=== PATIENT | female | born 1995 | race American Indian/Alaskan Native ===

== ENCOUNTER 2019-04-11 16:03 | Emergency (ER) | payer SELFPAY ==
--- NOTE | 2019-04-11 16:52 | Event Note ---
ED Screening Note ED Screening Note: 23 yo female with vomiting headache nausea This initial assessment/diagnostic orders/clinical plan/treatment(s) is/are subject to change based on patients health status, clinical progression and re- assessment by fellow clinical providers in the ED. Further treatment and workup at subsequent clinical providers discretion. Patient/guardian urged not to elope from the ED as their condition may be serious if not clinically assessed and managed. Initial orders include: upt ua
[2019-04-11 19:50] LABS: Basophils % (Auto) 0.6 % (0.0-1.8); Eosinophils # (Auto) 0.1 K/mm3 (0.0-0.4); Eosinophils % (Auto) 1.3 % (0.0-4.3); Hematocrit 35.2 % (30.3-42.9); Hemoglobin 11.8 gm/dl (10.1-14.3); Lymphocytes # (Auto) 2.2 K/mm3 (1.2-5.4); Mean Corpuscular HGB Conc 34 % (30-34); Mean Corpuscular Volume 83 fl (79-97); Monocytes # (Auto) 0.4 K/mm3 (0.0-0.8); Monocytes % (Auto) 6.7 % (0.0-7.3); Platelet Count 233 K/mm3 (140-440); Red Blood Count 4.26 M/mm3 (3.65-5.03); Red Cell Distribution Width 14.4 % (13.2-15.2)
[2019-04-11 20:05] LABS: BUN/Creatinine Ratio 12; Blood Urea Nitrogen 7 mg/dL (7-17); Calcium 9.1 mg/dL (8.4-10.2); Hemolysis Index 3
[2019-04-11 20:09] LABS: Alanine Aminotransferase < 5 units/L (7-56)
[2019-04-11 20:17] LABS: HCG Qualitative,Urine Negative (Negative)
[2019-04-11 20:19] LABS: Bacteria,Urine 1+ /HPF (Negative); Bilirubin,Urine NEG (Negative); Blood,Urine NEG (Negative); Color,Urine Yellow (Yellow); Mucus,Urine 3+ /HPF; Protein,Urine <15 mg/dL mg/dL (Negative); Urobilinogen,Urine < 2.0 mg/dL (<2.0)
[2019-04-11] MEDS ORDERED: FAMOTIDINE 20 MG/2 ML INJ IV ONE (20:35)
[2019-04-11] MEDS ORDERED: SODIUM CHLORIDE 0.9% 1000 ML 1,000 ML IV ONE (20:35)
[2019-04-11] MEDS ORDERED: metroNIDAZOLE 500 MG TAB PO ONE (21:31)
--- NOTE | 2019-04-11 21:38 | Emergency Department Report ---
ED N/V/D HPI - General Chief complaint: Nausea/Vomiting/Diarrhea Stated complaint: N/V Time Seen by Provider: 04/11/19 18:45 Source: patient Mode of arrival: Ambulatory Limitations: No Limitations - History of Present Illness Initial comments: 23-year-old -[place] female patient without significant past medical history presents with complaints of nausea x3 days and 3 episodes of vomiting times today. She also complains of a mild 2/10 in severity headache and lower abdominal cramping pain. She denies any dysuria or hematuria, but admits to urinary frequency and mild vaginal discharge with an odor. Patient also denies any fever/chills/sweats, diarrhea, hematochezia, melena, hematemesis/coffee- ground emesis, vision changes, dizziness, chest pain, shortness of breath, numbness/tingling/weakness in her limbs, or difficulty with ambulation. MD complaint: nausea, vomiting, abdominal pain -: Sudden - Related Data Previous Rx's Medication Instructions Recorded Last Taken Type Ondansetron [Zofran Odt] 4 mg PO Q8HR PRN #12 tab.rapdis 04/11/19 Unknown Rx Sulfamethoxazole/Trimethoprim 1 each PO BID 5 Days #10 tablet 04/11/19 Unknown Rx [Bactrim DS TAB] Allergies Allergy/AdvReac Type Severity Reaction Status Date / Time No Known Allergies Allergy Unverified 04/11/19 16:16 ED Review of Systems ROS: Stated complaint: N/V Other details as noted in HPI Constitutional: denies: chills, fever Eyes: denies: eye pain, vision change ENT: denies: hearing loss, epistaxis Respiratory: denies: cough, shortness of breath, wheezing Cardiovascular: denies: chest pain, palpitations Gastrointestinal: abdominal pain, nausea, vomiting. denies: diarrhea, constipation, hematemesis, melena Genitourinary: frequency, discharge. denies: dysuria, hematuria Musculoskeletal: denies: back pain, joint swelling, arthralgia Skin: denies: rash, lesions Neurological: denies: headache, weakness, paresthesias ED Past Medical Hx - Past Medical History Previous Medical History?: No - Surgical History Past Surgical History?: No - Social History Smoking Status: Former Smoker - Medications Home Medications: Home Medications Medication Instructions Recorded Confirmed Last Taken Type Ondansetron [Zofran Odt] 4 mg PO Q8HR PRN #12 tab.rapdis 04/11/19 Unknown Rx Sulfamethoxazole/Trimethoprim 1 each PO BID 5 Days #10 tablet 04/11/19 Unknown Rx [Bactrim DS TAB] ED Physical Exam - General Limitations: No Limitations General appearance: alert, in no apparent distress - Head Head exam: Present: atraumatic, normocephalic - Eye Eye exam: Present: normal appearance - ENT ENT exam: Present: mucous membranes moist - Neck Neck exam: Present: normal inspection - Respiratory Respiratory exam: Present: normal lung sounds bilaterally. Absent: respiratory distress - Cardiovascular Cardiovascular Exam: Present: regular rate, normal rhythm. Absent: systolic murmur, diastolic murmur, rubs, gallop - GI/Abdominal GI/Abdominal exam: Present: soft, tenderness (suprapubic ), normal bowel sounds. Absent: distended, guarding, rebound, rigid - External exam: Present: normal external exam Speculum exam: Present: vaginal discharge, cervical discharge. Absent: vaginal bleeding Bi-manual exam: Absent: cervical motion tendernes - Extremities Exam Extremities exam: Present: normal inspection - Back Exam Back exam: Present: normal inspection - Neurological Exam Neurological exam: Present: alert, oriented X3 - Psychiatric Psychiatric exam: Present: normal affect, normal mood - Skin Skin exam: Present: warm, dry, intact, normal color. Absent: rash ED Course Vital Signs 04/11/19 04/11/19 16:51 22:19 Temperature 98.4 F 98.2 F Pulse Rate 76 66 Respiratory 16 16 Rate Blood Pressure 92/55 Blood Pressure 108/66 [Right] O2 Sat by Pulse 100 100 Oximetry ED Medical Decision Making - Lab Data Result diagrams: 04/11/19 19:32 04/11/19 19:32 Lab Results 04/11/19 04/11/19 04/11/19 Range/Units 19:32 19:32 19:32 WBC 5.8 (4.5-11.0) K/mm3 RBC 4.26 (3.65-5.03) M/mm3 Hgb 11.8 (10.1-14.3) gm/dl Hct 35.2 (30.3-42.9) % MCV 83 (79-97) fl MCH 28 (28-32) pg MCHC 34 (30-34) % RDW 14.4 (13.2-15.2) % Plt Count 233 (140-440) K/mm3 Lymph % (Auto) 39.0 H (13.4-35.0) % [place] % (Auto) 6.7 (0.0-7.3) % Eos % (Auto) 1.3 (0.0-4.3) % Baso % (Auto) 0.6 (0.0-1.8) % Lymph # 2.2 (1.2-5.4) K/mm3 [place] # 0.4 (0.0-0.8) K/mm3 Eos # 0.1 (0.0-0.4) K/mm3 Baso # 0.0 (0.0-0.1) K/mm3 Seg Neutrophils % 52.4 (40.0-70.0) % Seg Neutrophils # 3.0 (1.8-7.7) K/mm3 Sodium 139 (137-145) mmol/L Potassium 4.2 (3.6-5.0) mmol/L Chloride 106.2 (98-107) mmol/L Carbon Dioxide 21 L (22-30) mmol/L Anion Gap 16 mmol/L BUN 7 (7-17) mg/dL Creatinine 0.6 L (0.7-1.2) mg/dL Estimated GFR > 60 ml/min BUN/Creatinine Ratio 12 % Glucose 90 (65-100) mg/dL Calcium 9.1 (8.4-10.2) mg/dL Total Bilirubin 0.20 (0.1-1.2) mg/dL AST 12 (5-40) units/L ALT < 5 L (7-56) units/L Alkaline Phosphatase 63 (35-129) units/L Total Protein 7.1 (6.3-8.2) g/dL Albumin 4.0 (3.9-5) g/dL Albumin/Globulin Ratio 1.3 % Lipase 10 L (13-60) units/L Urine Color (Yellow) Urine Turbidity (Clear) Urine pH (5.0-7.0) Ur Specific [place] (1.003-1.030) Urine Protein (Negative) mg/dL Urine Glucose (UA) (Negative) mg/dL Urine Ketones (Negative) mg/dL Urine Blood (Negative) Urine Nitrite (Negative) Ur Reducing Substances Urine Bilirubin (Negative) Urine Ictotest Urine Urobilinogen (<2.0) mg/dL Ur Leukocyte Esterase (Negative) Urine WBC (Auto) (0.0-6.0) /HPF Urine RBC (Auto) (0.0-6.0) /HPF U Epithel Cells (Auto) (0-13.0) /HPF Urine Bacteria (Auto) (Negative) /HPF Ur Transition Epith Cell /HPF Urine Mucus /HPF Urine HCG, Qual (Negative) 04/11/19 Range/Units Unknown WBC (4.5-11.0) K/mm3 RBC (3.65-5.03) M/mm3 Hgb (10.1-14.3) gm/dl Hct (30.3-42.9) % MCV (79-97) fl MCH (28-32) pg MCHC (30-34) % RDW (13.2-15.2) % Plt Count (140-440) K/mm3 Lymph % (Auto) (13.4-35.0) % [place] % (Auto) (0.0-7.3) % Eos % (Auto) (0.0-4.3) % Baso % (Auto) (0.0-1.8) % Lymph # (1.2-5.4) K/mm3 [place] # (0.0-0.8) K/mm3 Eos # (0.0-0.4) K/mm3 Baso # (0.0-0.1) K/mm3 Seg Neutrophils % (40.0-70.0) % Seg Neutrophils # (1.8-7.7) K/mm3 Sodium (137-145) mmol/L Potassium (3.6-5.0) mmol/L Chloride (98-107) mmol/L Carbon Dioxide (22-30) mmol/L Anion Gap mmol/L BUN (7-17) mg/dL Creatinine (0.7-1.2) mg/dL Estimated GFR ml/min BUN/Creatinine Ratio % Glucose (65-100) mg/dL Calcium (8.4-10.2) mg/dL Total Bilirubin (0.1-1.2) mg/dL AST (5-40) units/L ALT (7-56) units/L Alkaline Phosphatase (35-129) units/L Total Protein (6.3-8.2) g/dL Albumin (3.9-5) g/dL Albumin/Globulin Ratio % Lipase (13-60) units/L Urine Color Yellow (Yellow) Urine Turbidity Slightly-cloudy (Clear) Urine pH 8.0 H (5.0-7.0) Ur Specific [place] 1.021 (1.003-1.030) Urine Protein <15 mg/dl (Negative) mg/dL Urine Glucose (UA) Neg (Negative) mg/dL Urine Ketones 20 (Negative) mg/dL Urine Blood Neg (Negative) Urine Nitrite Neg (Negative) Ur Reducing Substances Not Reportable Urine Bilirubin Neg (Negative) Urine Ictotest Not Reportable Urine Urobilinogen < 2.0 (<2.0) mg/dL Ur Leukocyte Esterase Sm (Negative) Urine WBC (Auto) 41.0 H (0.0-6.0) /HPF Urine RBC (Auto) 7.0 (0.0-6.0) /HPF U Epithel Cells (Auto) 9.0 (0-13.0) /HPF Urine Bacteria (Auto) 1+ (Negative) /HPF Ur Transition Epith Cell < 1 /HPF Urine Mucus 3+ /HPF Urine HCG, Qual Negative (Negative) - Medical Decision Making 23-year-old patient here today with complaints of nausea for 3 days and vomiting today x3 episodes. Patient also has lower abdominal pain and cramping. She denies any fever. CBC is normal. UA shows 41 WBCs. On pelvic exam, patient has vaginal discharge without CMT. Wet prep is positive for trichomonas. Patient given 2 g of metronidazole. Her vitals are normal and she is nontoxic- appearing. Patient is tolerating fluids orally and no vomiting has been noted during her stay here in the ED. Patient is stable for discharge home. Recommend follow-up with primary care provider within 3 to 5 days. Informed patient that her partner also needs to be tested and treated. Discussed strict return precautions in detail with patient who verbalizes understanding. Critical care attestation.: If time is entered above; I have spent that time in minutes in the direct care of this critically ill patient, excluding procedure time. ED Disposition Clinical Impression: Trichomonal vaginitis Nausea & vomiting Qualifiers: Vomiting type: unspecified Vomiting Intractability: non-intractable Qualified Code(s): R11.2 - Nausea with vomiting, unspecified UTI (urinary tract infection) Qualifiers: Urinary tract infection type: acute cystitis Hematuria presence: without hematuria Qualified Code(s): N30.00 - Acute cystitis without hematuria Disposition: TO HOME OR SELFCARE Is pt being admited?: No Condition: Stable Instructions: Trichomoniasis (ED), Urinary Tract Infection in Women (ED) Prescriptions: Sulfamethoxazole/Trimethoprim [Bactrim DS TAB] 1 each PO BID 5 Days #10 tablet Ondansetron [Zofran Odt] 4 mg PO Q8HR PRN #12 tab.rapdis PRN Reason: Nausea Referrals: LEA DE LA TORRE MD [Staff Physician] - 3-5 Days
[2019-04-11 22:21] VITALS: BP 108/66
== END 2019-04-11 22:19 | disposition home or self-care (01) ==
LOC: ED 16:03
DX: A59.01 Trichomonal vulvovaginitis (principal); R11.2 Nausea with vomiting, unspecified; N39.0 Urinary tract infection, site not specified; Z87.891 Personal history of nicotine dependence; Z79.899 Other long term (current) drug therapy
CPT/HCPCS: 36415; 80053; 81001; 81025; 83690; 85025; 87086; 87210; 96361; 96374; 99284; J7030

== ENCOUNTER 2019-07-26 15:53 | Emergency (ER) | payer SELFPAY ==
[2019-07-26 15:57] VITALS: BP 121/70
[2019-07-26 16:36] LABS: Bilirubin,Urine NEG (Negative); Blood,Urine MOD (Negative); Color,Urine Yellow (Yellow); Mucus,Urine 3+ /HPF; Protein,Urine <15 mg/dL mg/dL (Negative); Urobilinogen,Urine < 2.0 mg/dL (<2.0)
[2019-07-26 16:36] LABS: Basophils % (Auto) 0.9 % (0.0-1.8); Eosinophils # (Auto) 0.3 K/mm3 (0.0-0.4); Eosinophils % (Auto) 5.6 % (0.0-4.3); Hematocrit 37.5 % (30.3-42.9); Hemoglobin 12.4 gm/dl (10.1-14.3); Lymphocytes # (Auto) 2.6 K/mm3 (1.2-5.4); Lymphocytes % (Auto) 49.3 % (13.4-35.0); Mean Corpuscular HGB Conc 33 % (30-34); Mean Corpuscular Volume 85 fl (79-97); Monocytes # (Auto) 0.5 K/mm3 (0.0-0.8); Monocytes % (Auto) 8.6 % (0.0-7.3); Platelet Count 255 K/mm3 (140-440); Red Blood Count 4.39 M/mm3 (3.65-5.03)
[2019-07-26 16:43] LABS: Alanine Aminotransferase 6 units/L (7-56); Albumin 4.5 g/dL (3.9-5); BUN/Creatinine Ratio 14; Blood Urea Nitrogen 11 mg/dL (7-17); Calcium 9.4 mg/dL (8.4-10.2); Hemolysis Index 6
[2019-07-26 16:45] LABS: HCG Qualitative,Urine Negative (Negative)
--- NOTE | 2019-07-26 17:03 | Emergency Department Report ---
ED Female HPI - General Chief complaint: Abdominal Pain Stated complaint: STOMACH PAIN Time Seen by Provider: 07/26/19 16:35 Source: patient Mode of arrival: Ambulatory Limitations: No Limitations - History of Present Illness Initial comments: This is a 23-year-old -[place]ian female who presents to the emergency room with pelvic cramps and nausea for 2 to 3 days. Patient reports last menstrual period was June 17, 2019, G5, miscarriages. She reports pain is intermittent. Admits to urinary frequency as associated symptoms. Denies f ever, chills, vaginal bleeding, vaginal discharge, back pain, or dysuria. MD Complaint: pelvic pain Onset/Timin -: days(s) Location: suprapubic Radiation: non-radiating Severity: mild Severity scale (0 -10): 3 Quality: cramping Consistency: intermittent Improves with: none Worsens with: none Are you Now?: No Last Menstrual Period: 06/17/19 EDC: 03/23/20 Associated Symptoms: abdominal pain, nausea/vomiting. denies: vaginal discharge, vaginal bleeding, fever/chills, headaches, loss of appetite, dysuria, hematuria, rash, seizure, shortness of breath, syncope, weakness - Related Data Sexually active: Yes : 5 Para: 3 A: 2 (Miscarriage) Previous Rx's Medication Instructions Recorded Last Taken Type Ondansetron [Zofran Odt] 4 mg PO Q8HR PRN #12 tab.rapdis 04/11/19 Unknown Rx Sulfamethoxazole/Trimethoprim 1 each PO BID 5 Days #10 tablet 04/11/19 Unknown Rx [Bactrim DS TAB] Meclizine [Antivert] 12.5 mg PO BID PRN #6 tablet 06/03/19 Unknown Rx Phenazopyridine [Pyridium] 200 mg PO TID #6 tab 07/26/19 Unknown Rx Sulfamethoxazole/Trimethoprim 1 each PO BID #6 tablet 07/26/19 Unknown Rx [Bactrim DS TAB] Allergies Allergy/AdvReac Type Severity Reaction Status Date / Time No Known Allergies Allergy Unverified 04/11/19 16:16 ED Review of Systems ROS: Stated complaint: STOMACH PAIN Other details as noted in HPI Constitutional: denies: chills, fever Respiratory: denies: cough, shortness of breath, wheezing Cardiovascular: denies: chest pain, palpitations Gastrointestinal: abdominal pain, nausea. denies: vomiting, diarrhea, constipation, hematochezia Genitourinary: denies: urgency, dysuria, discharge Musculoskeletal: back pain. denies: joint swelling, arthralgia Skin: denies: rash, lesions Neurological: denies: headache, weakness, paresthesias Psychiatric: denies: anxiety, depression ED Past Medical Hx - Past Medical History Previous Medical History?: No - Surgical History Past Surgical History?: No - Social History Smoking Status: Never Smoker Substance Use Type: None - Medications Home Medications: Home Medications Medication Instructions Recorded Confirmed Last Taken Type Ondansetron [Zofran Odt] 4 mg PO Q8HR PRN #12 tab.rapdis 04/11/19 Unknown Rx Sulfamethoxazole/Trimethoprim 1 each PO BID 5 Days #10 tablet 04/11/19 Unknown Rx [Bactrim DS TAB] Meclizine [Antivert] 12.5 mg PO BID PRN #6 tablet 06/03/19 Unknown Rx Phenazopyridine [Pyridium] 200 mg PO TID #6 tab 07/26/19 Unknown Rx Sulfamethoxazole/Trimethoprim 1 each PO BID #6 tablet 07/26/19 Unknown Rx [Bactrim DS TAB] ED Physical Exam - General Limitations: No Limitations General appearance: alert, in no apparent distress, obese - Respiratory Respiratory exam: Present: normal lung sounds bilaterally. Absent: respiratory distress - Cardiovascular Cardiovascular Exam: Present: regular rate, normal rhythm. Absent: systolic murmur, diastolic murmur, rubs, gallop - GI/Abdominal GI/Abdominal exam: Present: soft, tenderness (Suprapubic), normal bowel sounds. Absent: distended, guarding, rebound, rigid - Extremities Exam Extremities exam: Present: normal inspection - Back Exam Back exam: Present: full ROM, CVA tenderness (R). Absent: CVA tenderness (L) - Neurological Exam Neurological exam: Present: alert, oriented X3, normal gait - Psychiatric Psychiatric exam: Present: normal affect, normal mood - Skin Skin exam: Present: warm, dry, intact, normal color. Absent: rash ED Course Vital Signs 07/26/19 15:54 Temperature 99.1 F Pulse Rate 88 Respiratory 16 Rate Blood Pressure 121/70 O2 Sat by Pulse 100 Oximetry ED Medical Decision Making - Lab Data Result diagrams: 07/26/19 16:01 07/26/19 16:01 Lab Results 07/26/19 07/26/19 07/26/19 Range/Units 16:01 16:01 Unknown WBC 5.3 (4.5-11.0) K/mm3 RBC 4.39 (3.65-5.03) M/mm3 Hgb 12.4 (10.1-14.3) gm/dl Hct 37.5 (30.3-42.9) % MCV 85 (79-97) fl MCH 28 (28-32) pg MCHC 33 (30-34) % RDW 14.0 (13.2-15.2) % Plt Count 255 (140-440) K/mm3 Lymph % (Auto) 49.3 H (13.4-35.0) % [place] % (Auto) 8.6 H (0.0-7.3) % Eos % (Auto) 5.6 H (0.0-4.3) % Baso % (Auto) 0.9 (0.0-1.8) % Lymph # 2.6 (1.2-5.4) K/mm3 [place] # 0.5 (0.0-0.8) K/mm3 Eos # 0.3 (0.0-0.4) K/mm3 Baso # 0.0 (0.0-0.1) K/mm3 Seg Neutrophils % 35.6 L (40.0-70.0) % Seg Neutrophils # 1.9 (1.8-7.7) K/mm3 Sodium 139 (137-145) mmol/L Potassium 4.0 (3.6-5.0) mmol/L Chloride 105.0 (98-107) mmol/L Carbon Dioxide 21 L (22-30) mmol/L Anion Gap 17 mmol/L BUN 11 (7-17) mg/dL Creatinine 0.8 (0.7-1.2) mg/dL Estimated GFR > 60 ml/min BUN/Creatinine Ratio 14 % Glucose 98 (65-100) mg/dL Calcium 9.4 (8.4-10.2) mg/dL Total Bilirubin 0.20 (0.1-1.2) mg/dL AST 13 (5-40) units/L ALT 6 L (7-56) units/L Alkaline Phosphatase 72 (35-129) units/L Total Protein 7.9 (6.3-8.2) g/dL Albumin 4.5 (3.9-5) g/dL Albumin/Globulin Ratio 1.3 % Urine Color Yellow (Yellow) Urine Turbidity Slightly-cloudy (Clear) Urine pH 5.0 (5.0-7.0) Ur Specific [place] 1.024 (1.003-1.030) Urine Protein <15 mg/dl (Negative) mg/dL Urine Glucose (UA) Neg (Negative) mg/dL Urine Ketones Neg (Negative) mg/dL Urine Blood Mod (Negative) Urine Nitrite Neg (Negative) Urine Bilirubin Neg (Negative) Urine Urobilinogen < 2.0 (<2.0) mg/dL Ur Leukocyte Esterase Mod (Negative) Urine WBC (Auto) 44.0 H (0.0-6.0) /HPF Urine RBC (Auto) 2.0 (0.0-6.0) /HPF U Epithel Cells (Auto) 23.0 H (0-13.0) /HPF Urine Mucus 3+ /HPF Urine HCG, Qual Negative (Negative) - Medical Decision Making This is a 23-year-old female that presents to the emergency room with nausea, pelvic pain, and urinary frequency for 3 days. Patient is afebrile in no acute distress. Mild suprapubic tenderness and right CVA tenderness on exam. Work- up: CBC, CMP, urinalysis, and urinary test. Urinalysis positive for acute cystitis. According to the work-up, exam, and history there is low suspicion of pancreatitis, cholecystitis, SBO, appendicitis, or acute abdomen. All other labs are unremarkable. Start antibiotics. Given strict return instructions. Advise follow-up with primary care provider within 24 to 72 hours. Patient discharged home stable. Critical care attestation.: If time is entered above; I have spent that time in minutes in the direct care of this critically ill patient, excluding procedure time. ED Disposition Clinical Impression: Pelvic pain Acute cystitis Qualifiers: Hematuria presence: with hematuria Qualified Code(s): N30.01 - Acute cystitis with hematuria Disposition: TO HOME OR SELFCARE Is pt being admited?: No Condition: Stable Instructions: Abdominal Pain (ED), Urinary Tract Infection in Women (ED) Additional Instructions: Complete antibiotics as prescribed. Increase fluid intake to 1 L to 2 L/day. Prescriptions: Sulfamethoxazole/Trimethoprim [Bactrim DS TAB] 1 each PO BID #6 tablet Phenazopyridine [Pyridium] 200 mg PO TID #6 tab Referrals[facility] [Outside] - 3-5 Days [facility] [Outside] - 3-5 Days LEA DE LA TORRE MD [Staff Physician] - 3-5 Days Time of Disposition: 17:04
== END 2019-07-26 17:55 | disposition home or self-care (01) ==
LOC: ED 15:53
DX: N30.00 Acute cystitis without hematuria (principal)
CPT/HCPCS: 36415; 80053; 81001; 81025; 85025; 87086

== ENCOUNTER 2019-09-17 18:45 | Emergency (ER) | payer SELFPAY | END 2019-09-17 22:45 | disposition left against medical advice (07) | LOC: ED 18:45 | DX: R10.9 Unspecified abdominal pain (principal); Z53.21 Procedure and treatment not carried out due to patient leaving prior to being seen by health care provider ==

== ENCOUNTER 2019-12-07 22:38 | Emergency (ER) | payer SELFPAY ==
[2019-12-07 23:30] VITALS: BP 111/68
[2019-12-08 00:29] LABS: BUN/Creatinine Ratio 10; Blood Urea Nitrogen 8 mg/dL (7-17); Calcium 9.6 mg/dL (8.4-10.2)
[2019-12-08 00:30] LABS: Alanine Aminotransferase 7 units/L (7-56); Albumin 4.5 g/dL (3.9-5); Hemolysis Index 4
[2019-12-08 00:31] LABS: Basophils % (Auto) 0.6 % (0.0-1.8); Eosinophils # (Auto) 0.1 K/mm3 (0.0-0.4); Eosinophils % (Auto) 1.2 % (0.0-4.3); Hematocrit 35.4 % (30.3-42.9); Lymphocytes # (Auto) 3.3 K/mm3 (1.2-5.4); Lymphocytes % (Auto) 51.2 % (13.4-35.0); Mean Corpuscular HGB Conc 34 % (30-34); Mean Corpuscular Volume 85 fl (79-97); Monocytes # (Auto) 0.4 K/mm3 (0.0-0.8); Monocytes % (Auto) 6.6 % (0.0-7.3); Platelet Count 239 K/mm3 (140-440); Red Blood Count 4.19 M/mm3 (3.65-5.03); Red Cell Distribution Width 14.3 % (13.2-15.2)
== END 2019-12-07 23:25 | disposition left against medical advice (07) ==
LOC: ED 22:38
DX: R11.10 Vomiting, unspecified (principal); Z53.21 Procedure and treatment not carried out due to patient leaving prior to being seen by health care provider
CPT/HCPCS: 36415; 80053; 84703; 85025

== ENCOUNTER 2020-01-19 18:59 | Emergency (ER) | payer SELFPAY ==
--- NOTE | 2020-01-19 19:08 | Event Note ---
ED Screening Note Date of service: 01/19/20 Time: 19:07 ED Screening Note: 24-year-old female presents the emergency department chief complaint of 4 days of lower abdominal pain. She reports associated nausea, vomiting and constipation. She denies any previous surgeries. Denies any known past medical history, current medication use or known allergies to medications. This initial assessment/diagnostic orders/clinical plan/treatment(s) is/are subject to change based on patients health status, clinical progression and re- assessment by fellow clinical providers in the ED. Further treatment and workup at subsequent clinical providers discretion. Patient/guardian urged not to elope from the ED as their condition may be serious if not clinically assessed and managed. Initial orders include: CBC, CMP, lipase, urinalysis, urine
[2020-01-19 19:11] VITALS: BP 112/67
[2020-01-19 19:22] LABS: Bilirubin,Urine NEG (Negative); Blood,Urine NEG (Negative); Color,Urine Colorless (Yellow); Protein,Urine <15 mg/dL mg/dL (Negative); RBC,Urine < 1.0 /HPF (0.0-6.0); Urobilinogen,Urine < 2.0 mg/dL (<2.0)
[2020-01-19 19:23] LABS: HCG Qualitative,Urine Negative (Negative)
[2020-01-19 20:08] LABS: Basophils % (Auto) 0.7 % (0.0-1.8); Eosinophils # (Auto) 0.2 K/mm3 (0.0-0.4); Eosinophils % (Auto) 2.3 % (0.0-4.3); Hematocrit 37.4 % (30.3-42.9); Hemoglobin 12.7 gm/dl (10.1-14.3); Lymphocytes # (Auto) 2.6 K/mm3 (1.2-5.4); Lymphocytes % (Auto) 38.2 % (13.4-35.0); Mean Corpuscular HGB Conc 34 % (30-34); Mean Corpuscular Volume 87 fl (79-97); Monocytes # (Auto) 0.5 K/mm3 (0.0-0.8); Monocytes % (Auto) 7.7 % (0.0-7.3); Platelet Count 236 K/mm3 (140-440); Red Cell Distribution Width 13.8 % (13.2-15.2)
[2020-01-19 20:30] LABS: Alanine Aminotransferase 9 units/L (7-56); Albumin 4.3 g/dL (3.9-5); Blood Urea Nitrogen 7 mg/dL (7-17); Calcium 9.5 mg/dL (8.4-10.2); Hemolysis Index 11
[2020-01-19 20:35] LABS: BUN/Creatinine Ratio 12
[2020-01-19] MEDS ORDERED: ONDANSETRON 4 MG ODT TAB PO ONE (20:44)
[2020-01-19] MEDS ORDERED: ACETAMINOPHEN 325 MG TAB PO ONE (20:44)
--- NOTE | 2020-01-19 21:00 | Emergency Department Report ---
ED General Adult HPI - General Chief complaint: Abdominal Pain Stated complaint: NAUSEA/VOMITING/ABD PAIN/BACK PX Time Seen by Provider: 01/19/20 20:27 Source: patient Mode of arrival: Ambulatory Limitations: No Limitations - History of Present Illness Initial comments: Patient is a 24-year-old female presents emergency room with complaints of nausea and lightheadedness that began 4 days ago. She states that she had one episode of vomiting over the last 4 days. She is able to tolerate p.o. intake without difficulty. She states that she did have a bowel movement about 1 hour ago but states that it was smaller and harder than usual and feels like she may be slightly constipated but she is still having bowel movements and passing gas. She states that she has some mild cramping in her lower abdomen and lower back. She denies any fall, injury, fever, dysuria, vaginal discharge, vaginal itching, burning, pelvic pain. No past medical history. No allergies to medications. Last menstrual cycle December 25, 2019. She denies any drug use. She states that she is an occasional drinker. Severity scale (0 -10): 3 - Related Data Previous Rx's Medication Instructions Recorded Last Taken Type Ondansetron [Zofran Odt] 4 mg PO Q8HR PRN #12 tab.rapdis 04/11/19 Unknown Rx Sulfamethoxazole/Trimethoprim 1 each PO BID 5 Days #10 tablet 04/11/19 Unknown Rx [Bactrim DS TAB] Meclizine [Antivert] 12.5 mg PO BID PRN #6 tablet 06/03/19 Unknown Rx Phenazopyridine [Pyridium] 200 mg PO TID #6 tab 07/26/19 Unknown Rx Sulfamethoxazole/Trimethoprim 1 each PO BID #6 tablet 07/26/19 Unknown Rx [Bactrim DS TAB] Acetaminophen [Tylenol] 650 mg PO Q8HR PRN #20 capsule 01/19/20 Unknown Rx Docusate Sodium [Colace] 100 mg PO BID PRN #20 capsule 01/19/20 Unknown Rx Ondansetron [Zofran Odt] 4 mg PO Q8HR PRN #7 tab.rapdis 01/19/20 Unknown Rx Allergies Allergy/AdvReac Type Severity Reaction Status Date / Time No Known Allergies Allergy Unverified 04/11/19 16:16 ED Review of Systems ROS: Stated complaint: NAUSEA/VOMITING/ABD PAIN/BACK PX Other details as noted in HPI Comment: All other systems reviewed and negative ED Past Medical Hx - Past Medical History Previous Medical History?: No - Surgical History Past Surgical History?: No - Social History Smoking Status: Never Smoker Substance Use Type: None - Medications Home Medications: Home Medications Medication Instructions Recorded Confirmed Last Taken Type Ondansetron [Zofran Odt] 4 mg PO Q8HR PRN #12 tab.rapdis 04/11/19 Unknown Rx Sulfamethoxazole/Trimethoprim 1 each PO BID 5 Days #10 tablet 04/11/19 Unknown Rx [Bactrim DS TAB] Meclizine [Antivert] 12.5 mg PO BID PRN #6 tablet 06/03/19 Unknown Rx Phenazopyridine [Pyridium] 200 mg PO TID #6 tab 07/26/19 Unknown Rx Sulfamethoxazole/Trimethoprim 1 each PO BID #6 tablet 07/26/19 Unknown Rx [Bactrim DS TAB] Acetaminophen [Tylenol] 650 mg PO Q8HR PRN #20 capsule 01/19/20 Unknown Rx Docusate Sodium [Colace] 100 mg PO BID PRN #20 capsule 01/19/20 Unknown Rx Ondansetron [Zofran Odt] 4 mg PO Q8HR PRN #7 tab.rapdis 01/19/20 Unknown Rx ED Physical Exam - General Limitations: No Limitations General appearance: alert, in no apparent distress - Head Head exam: Present: atraumatic, normocephalic - Eye Eye exam: Present: normal appearance - ENT ENT exam: Present: mucous membranes moist - Respiratory Respiratory exam: Present: normal lung sounds bilaterally. Absent: respiratory distress, wheezes, rales, rhonchi, stridor, chest wall tenderness, accessory muscle use, decreased breath sounds, prolonged expiratory - Cardiovascular Cardiovascular Exam: Present: regular rate, normal rhythm, normal heart sounds. Absent: diastolic murmur, rubs, gallop - GI/Abdominal GI/Abdominal exam: Present: soft, normal bowel sounds. Absent: distended, tenderness, guarding, rebound, rigid - Back Exam Back exam: Absent: CVA tenderness (R), CVA tenderness (L) - Neurological Exam Neurological exam: Present: alert, oriented X3 - Psychiatric Psychiatric exam: Present: normal affect, normal mood - Skin Skin exam: Present: warm, dry, intact ED Course Vital Signs 01/19/20 01/19/20 19:07 21:20 Temperature 98.7 F Pulse Rate 107 H 77 Respiratory 16 16 Rate Blood Pressure 112/67 O2 Sat by Pulse 100 100 Oximetry ED Medical Decision Making - Lab Data Result diagrams: 01/19/20 19:47 01/19/20 19:47 Labs 01/19/20 01/19/20 01/19/20 19:11 19:47 19:47 WBC 6.8 RBC 4.30 Hgb 12.7 Hct 37.4 MCV 87 MCH 30 MCHC 34 RDW 13.8 Plt Count 236 Lymph % (Auto) 38.2 H [place] % (Auto) 7.7 H Eos % (Auto) 2.3 Baso % (Auto) 0.7 Lymph # (Auto) 2.6 [place] # (Auto) 0.5 Eos # (Auto) 0.2 Baso # (Auto) 0.0 Seg Neutrophils % 51.1 Seg Neutrophils # 3.5 Sodium 140 Potassium 3.9 Chloride 105.5 Carbon Dioxide 23 Anion Gap 15 BUN 7 Creatinine 0.6 Estimated GFR > 60 BUN/Creatinine Ratio 12 Glucose 73 Calcium 9.5 Total Bilirubin 0.20 AST 14 ALT 9 Alkaline Phosphatase 64 Total Protein 7.8 Albumin 4.3 Albumin/Globulin Ratio 1.2 Lipase 12 L Urine Color Colorless Urine Turbidity Clear Urine pH 7.0 Ur Specific [place] 1.005 Urine Protein <15 mg/dl Urine Glucose (UA) Neg Urine Ketones Neg Urine Blood Neg Urine Nitrite Neg Urine Bilirubin Neg Urine Urobilinogen < 2.0 Ur Leukocyte Esterase Neg Urine WBC (Auto) 1.0 Urine RBC (Auto) < 1.0 U Epithel Cells (Auto) < 1.0 Urine HCG, Qual Negative Vital Signs 01/19/20 01/19/20 19:07 21:20 Temperature 98.7 F Pulse Rate 107 H 77 Respiratory 16 16 Rate Blood Pressure 112/67 O2 Sat by Pulse 100 100 Oximetry - Medical Decision Making Patient is a 24-year-old female presents emergency room with complaints of nausea and lightheadedness that began 4 days ago. She states that she had one episode of vomiting over the last 4 days. She is able to tolerate p.o. intake without difficulty. She states that she did have a bowel movement about 1 hour ago but states that it was smaller and harder than usual and feels like she may be slightly constipated but she is still having bowel movements and passing gas. She states that she has some mild cramping in her lower abdomen and lower back. She denies any fall, injury, fever, dysuria, vaginal discharge, vaginal itching, burning, pelvic pain. No past medical history. No allergies to medications. Last menstrual cycle December 25, 2019. She denies any drug use. She states that she is an occasional drinker. Initial triage vitals with very mild tachycardia which improved to normal upon repeat. On exam no abdominal tenderness palpation, no guarding, no rebound, no rigidity, normal bowel sounds, no peritoneal signs, no CVA tenderness. Labs are within normal limits. UA is within normal limits. Urine is negative. Patient given Zofran and Tylenol in the emergency department and symptoms improved and she was feeling much better and ready to go. She was able to tolerate p.o. intake without difficulty. No clinical signs of acute emergent intra-abdominal pathology at this time, she has no abdominal tenderness on exam, no guarding, no rebound, no rigidity, normal bowel sounds, no obstructive signs, no leukocytosis, no fever. pt given prescription for colace, tylenol, and zofran. advised pt Please take medication as prescribed. Increase your water intake. Increase your fiber intake. Follow-up with a primary care doctor. Follow-up with a GI doctor. Return to emergency room for new or worsening symptoms. - Differential Diagnosis UTI, gastritis, gas pain, constipation, indigestion, PMS, Critical care attestation.: If time is entered above; I have spent that time in minutes in the direct care of this critically ill patient, excluding procedure time. ED Disposition Clinical Impression: Abdominal cramping, Discomfort of back Nausea & vomiting Qualifiers: Vomiting type: unspecified Vomiting Intractability: non-intractable Qualified Code(s): R11.2 - Nausea with vomiting, unspecified Disposition: DC-01 TO HOME OR SELFCARE Is pt being admited?: No Does the pt Need Aspirin: No Condition: Stable Instructions: High-Fiber Diet, Nausea and Vomiting, Adult, [id number], Abdominal Pain (ED) Additional Instructions: Please take medication as prescribed. Increase your water intake. Increase your fiber intake. Follow-up with a primary care doctor. Follow-up with a GI doctor. Return to emergency room for new or worsening symptoms. Prescriptions: Docusate Sodium [Colace] 100 mg PO BID PRN #20 capsule PRN Reason: constipation Acetaminophen [Tylenol] 650 mg PO Q8HR PRN #20 capsule PRN Reason: pain Ondansetron [Zofran Odt] 4 mg PO Q8HR PRN #7 tab.rapdis PRN Reason: Nausea Referrals: PRIMARY MD BECCA [Primary Care Provider] - 2-3 Days [facility] [Provider Group] - 2-3 Days LEA DE LA TORRE MD [Staff Physician] - 2-3 Days [facility], [LAB/CONTRACT] - 2-3 Days [facility] [Provider Group] - 2-3 Days Time of Disposition: 21:09 Print Language: EQUATORIAL GUINEAN
== END 2020-01-19 21:20 | disposition home or self-care (01) ==
LOC: ED 18:59
DX: M54.9 Dorsalgia, unspecified (principal); R11.2 Nausea with vomiting, unspecified; R10.9 Unspecified abdominal pain; Z79.899 Other long term (current) drug therapy
CPT/HCPCS: 36415; 80053; 81001; 81025; 83690; 85025; Q0162

== ENCOUNTER 2020-02-10 13:19 | Emergency (ER) | payer SELFPAY | END 2020-02-10 14:40 | disposition left against medical advice (07) | LOC: ED 13:19 | DX: R10.9 Unspecified abdominal pain (principal); R11.10 Vomiting, unspecified; Z53.21 Procedure and treatment not carried out due to patient leaving prior to being seen by health care provider ==

== ENCOUNTER 2020-02-24 21:29 | Emergency (ER) | payer SELFPAY | END 2020-02-24 21:30 | disposition left against medical advice (07) | LOC: ED 21:29 | DX: O21.8 Other vomiting complicating pregnancy (principal); Z53.21 Procedure and treatment not carried out due to patient leaving prior to being seen by health care provider ==

== ENCOUNTER 2020-03-05 17:18 | Inpatient (IN) | payer SELFPAY ==
[2020-03-05] MEDS ORDERED: METOCLOPRAMIDE 10 MG/2 ML INJ IV ONE ×2 (17:20→22:07)
[2020-03-05] MEDS ORDERED: LACTATED RINGERS 1,000 ML IV ONE (17:20)
[2020-03-05] MEDS ORDERED: diphenhydrAMINE 50 MG/ML VIAL IV ONE (17:20)
[2020-03-05] MEDS ORDERED: FAMOTIDINE 20 MG/2 ML INJ IV ONE (17:20)
--- NOTE | 2020-03-05 17:31 | Event Note ---
ED Screening Note Date of service: 03/05/20 Time: 17:31 ED Screening Note: Patient complains of nausea/vomiting x3 days 12 weeks Also states abdominal pain and vaginal bleeding This initial assessment/diagnostic orders/clinical plan/treatment(s) is/are subject to change based on patients health status, clinical progression and re- assessment by fellow clinical providers in the ED. Further treatment and workup at subsequent clinical providers discretion. Patient/guardian urged not to elope from the ED as their condition may be serious if not clinically assessed and managed. Initial orders include: Labs Meds
[2020-03-05 17:48] LABS: Basophils % (Auto) 0.4 % (0.0-1.8); Eosinophils % (Auto) 0.2 % (0.0-4.3); Hematocrit 35.4 % (30.3-42.9); Hemoglobin 12.2 gm/dl (10.1-14.3); Lymphocytes # (Auto) 2.1 K/mm3 (1.2-5.4); Lymphocytes % (Auto) 23.2 % (13.4-35.0); Mean Corpuscular HGB Conc 35 % (30-34); Mean Corpuscular Volume 85 fl (79-97); Monocytes # (Auto) 0.5 K/mm3 (0.0-0.8); Monocytes % (Auto) 5.7 % (0.0-7.3); Platelet Count 243 K/mm3 (140-440); Red Blood Count 4.19 M/mm3 (3.65-5.03); Red Cell Distribution Width 13.2 % (13.2-15.2)
[2020-03-05 18:13] LABS: Alanine Aminotransferase 10 units/L (7-56); Albumin 4.1 g/dL (3.9-5); Blood Urea Nitrogen 8 mg/dL (7-17); Calcium 9.3 mg/dL (8.4-10.2); Hemolysis Index 7
[2020-03-05 18:14] LABS: BUN/Creatinine Ratio 16
--- NOTE | 2020-03-05 19:04 | Ultrasound Report ---
ULTRASOUND OBSTETRIC INDICATION / CLINICAL INFORMATION: pain, vaginal bleeding. TECHNIQUE: Transabdominal. And transvaginal COMPARISON: None available. FINDINGS: GESTATIONAL SAC: Well-defined oval shape and intrauterine in location. YOLK SAC: No significant abnormality. EMBRYO/FETUS: No significant abnormality. - [place]-Rump Length = 3.3 cm = 10 weeks, 1 day(s). - Heart Rate, beats per minute (if present) = 177 ADNEXA: No significant abnormality. FREE FLUID: None. ADDITIONAL FINDINGS: None. IMPRESSION: 1. Single, living intrauterine with estimated sonographic age of 10 weeks, 1 day(s). Signer Name: Dany Riggins MD Signed: 03/05/2020 7:00 PM Workstation Name: [id number]
--- NOTE | 2020-03-05 19:04 | Ultrasound Report ---
ULTRASOUND OBSTETRIC INDICATION / CLINICAL INFORMATION: pain, vaginal bleeding. TECHNIQUE: Transabdominal. And transvaginal COMPARISON: None available. FINDINGS: GESTATIONAL SAC: Well-defined oval shape and intrauterine in location. YOLK SAC: No significant abnormality. EMBRYO/FETUS: No significant abnormality. - [place]-Rump Length = 3.3 cm = 10 weeks, 1 day(s). - Heart Rate, beats per minute (if present) = 177 ADNEXA: No significant abnormality. FREE FLUID: None. ADDITIONAL FINDINGS: None. IMPRESSION: 1. Single, living intrauterine with estimated sonographic age of 10 weeks, 1 day(s). Signer Name: Dany Riggins MD Signed: 03/05/2020 7:00 PM Workstation Name: [id number]
[2020-03-05] MEDS ORDERED: ONDANSETRON 4 MG/2 ML INJ IV ONE ×2 (20:35→21:55)
[2020-03-05] MEDS ORDERED: SODIUM CHLORIDE 0.9% 1000 ML 1,000 ML IV ONE ×3 (20:35→21:52)
--- NOTE | 2020-03-05 20:39 | Emergency Department Report ---
ED HPI - General Chief complaint: Nausea/Vomiting/Diarrhea Stated complaint: 12WKS /NAUSEA VOMITTING Time Seen by Provider: 03/05/20 20:02 Source: patient, EMS Mode of arrival: Wheelchair Limitations: No Limitations - History of Present Illness Initial comments: Patient is a 24-year-old female that presents emergency room with complaints of nausea and vomiting. Patient states her symptoms been going on for 3 days. Patient also complains of lower abdominal pain. Patient states she is having vaginal spotting. Patient states she is 10 to 12 weeks . Patient states she is being followed by an CRUTCHER HELPER. Patient states her CR[facility]ER HELPER is [facility]. Patient states her lower abdominal pain is a 10 out of 10. Patient states she is not able to hold any food or water down. Patient states she has had this problem with previous pregnancies. Patient states that her vaginal bleeding is very very light and only spotting. Patient denies any vaginal discharge. Patient denies any loss of fluid per vagina. Patient denies blood in her vomitus. Patient denies fever and chills. Patient denies any blood in her stool. Patient denies recent travel. Patient denies recent international travel. Patient denies exposure to the novel coronavirus. Patient denies sick contacts. Patient denies fever and chills. Patient denies cough. Patient denies diarrhea. Patient denies coming in contact with anybody with symptoms of the novel coronavirus. MD Complaint: abdominal pain -: Sudden Location: pelvis Severity: severe Severity scale (0 -10): 10 Quality: stabbing, constant Consistency: constant Improves with: rest Worsens with: movement Associated symptoms: nausea/vomiting, abdominal pain, malaise. denies: vaginal bleeding, vaginal discharge, dysuria, headache, vision changes, dysparuenia, rash, seizure Vaginal bleeding: light :: Yes Number of weeks : 10 OB History - Current : hyperemesis OB History - Previous Pregnancies: hyperemesis Pre- care: followed by OB - Related Data : 8 Para: 5 Ab: 2 Previous Rx's Medication Instructions Recorded Last Taken Type Ondansetron [Zofran Odt] 4 mg PO Q8HR PRN #12 tab.rapdis 04/11/19 Unknown Rx Sulfamethoxazole/Trimethoprim 1 each PO BID 5 Days #10 tablet 04/11/19 Unknown Rx [Bactrim DS TAB] Meclizine [Antivert] 12.5 mg PO BID PRN #6 tablet 06/03/19 Unknown Rx Phenazopyridine [Pyridium] 200 mg PO TID #6 tab 07/26/19 Unknown Rx Sulfamethoxazole/Trimethoprim 1 each PO BID #6 tablet 07/26/19 Unknown Rx [Bactrim DS TAB] Acetaminophen [Tylenol] 650 mg PO Q8HR PRN #20 capsule 01/19/20 Unknown Rx Docusate Sodium [Colace] 100 mg PO BID PRN #20 capsule 01/19/20 Unknown Rx Ondansetron [Zofran Odt] 4 mg PO Q8HR PRN #7 tab.rapdis 01/19/20 Unknown Rx Allergies Allergy/AdvReac Type Severity Reaction Status Date / Time No Known Allergies Allergy Unverified 04/11/19 16:16 ED Review of Systems ROS: Stated complaint: 12WKS /NAUSEA VOMITTING Other details as noted in HPI Constitutional: denies: chills, fever Eyes: denies: eye pain, eye discharge, vision change ENT: denies: ear pain, throat pain Respiratory: denies: cough, shortness of breath, wheezing Cardiovascular: denies: chest pain, palpitations Endocrine: no symptoms reported Gastrointestinal: abdominal pain, nausea, vomiting. denies: diarrhea Genitourinary: denies: urgency, dysuria, discharge Musculoskeletal: denies: back pain, joint swelling, arthralgia Skin: denies: rash, lesions Neurological: denies: headache, weakness, paresthesias Psychiatric: denies: anxiety, depression Hematological/Lymphatic: denies: easy bleeding, easy bruising ED Past Medical Hx - Past Medical History Previous Medical History?: No - Surgical History Past Surgical History?: No - Family History Family history: no significant - Social History Smoking Status: Never Smoker Substance Use Type: None - Medications Home Medications: Home Medications Medication Instructions Recorded Confirmed Last Taken Type Ondansetron [Zofran Odt] 4 mg PO Q8HR PRN #12 tab.rapdis 04/11/19 Unknown Rx Sulfamethoxazole/Trimethoprim 1 each PO BID 5 Days #10 tablet 04/11/19 Unknown Rx [Bactrim DS TAB] Meclizine [Antivert] 12.5 mg PO BID PRN #6 tablet 06/03/19 Unknown Rx Phenazopyridine [Pyridium] 200 mg PO TID #6 tab 07/26/19 Unknown Rx Sulfamethoxazole/Trimethoprim 1 each PO BID #6 tablet 07/26/19 Unknown Rx [Bactrim DS TAB] Acetaminophen [Tylenol] 650 mg PO Q8HR PRN #20 capsule 01/19/20 Unknown Rx Docusate Sodium [Colace] 100 mg PO BID PRN #20 capsule 01/19/20 Unknown Rx Ondansetron [Zofran Odt] 4 mg PO Q8HR PRN #7 tab.rapdis 01/19/20 Unknown Rx ED Physical Exam - General Limitations: No Limitations General appearance: alert, in no apparent distress - Head Head exam: Present: atraumatic, normocephalic - Eye Eye exam: Present: normal appearance - ENT ENT exam: Present: mucous membranes dry - Neck Neck exam: Present: normal inspection - Respiratory Respiratory exam: Present: normal lung sounds bilaterally. Absent: respiratory distress - Cardiovascular Cardiovascular Exam: Present: regular rate, normal rhythm. Absent: systolic murmur, diastolic murmur, rubs, gallop - GI/Abdominal GI/Abdominal exam: Present: soft, tenderness (Suprapubic tenderness), normal bowel sounds - Extremities Exam Extremities exam: Present: normal inspection - Back Exam Back exam: Present: normal inspection - Neurological Exam Neurological exam: Present: alert, oriented X3 - Psychiatric Psychiatric exam: Present: normal affect, normal mood - Skin Skin exam: Present: warm, dry, intact, normal color. Absent: rash ED Course Vital Signs 03/05/20 17:19 Temperature 96.9 F L Pulse Rate 74 Respiratory 20 Rate Blood Pressure 101/49 [Left] O2 Sat by Pulse 100 Oximetry - Reevaluation(s) Reevaluation #1: Patient has received 1 L of LR and Reglan and patient was still vomiting. Patient was then given more fluids and Zofran. Patient states her vomiting has decreased a little bit but she is still in severe pain of her lower abdomen. Patient will be given Dilaudid. 03/05/20 21:00 Reevaluation #2: Patient states the pain is better. Patient states he is still nauseated. Patient was given another 4 mg of Zofran. Patient will be given another liter of fluids. 03/05/20 21:55 - Consultations Consultation #1: I discussed case with SENIOR [facility]. Dr. Castellanos agrees with admission. Bridge orders placed. 03/05/20 21:57 ED Medical Decision Making - Lab Data Result diagrams: 03/05/20 17:36 03/05/20 17:36 - Radiology Data Radiology results: report reviewed, image reviewed ULTRASOUND OBSTETRIC INDICATION / CLINICAL INFORMATION: pain, vaginal bleeding. TECHNIQUE: Transabdominal. And transvaginal COMPARISON: None available. FINDINGS: GESTATIONAL SAC: Well-defined oval shape and intrauterine in location. YOLK SAC: No significant abnormality. EMBRYO/FETUS: No significant abnormality. - [place]-Rump Length = 3.3 cm = 10 weeks, 1 day(s). - Heart Rate, beats per minute (if present) = 177 ADNEXA: No significant abnormality. FREE FLUID: None. ADDITIONAL FINDINGS: None. IMPRESSION: 1. Single, living intrauterine with estimated sonographic age of 10 weeks, 1 day(s). - Medical Decision Making Patient is a 24-year-old female A2 that presents emergency room with hyperemesis and abdominal pain. Patient also has vaginal spotting. Patient had labs done which showed hyper kalemia and hyponatremia. Patient received multiple antiemetics and multiple liters of fluid and the patient still has a dr y mucosal membranes and nausea and unable to tolerate p.o. intake. Patient's labs are consistent with dehydration. Patient had an ultrasound to rule out miscarriage. Ultrasound shows a positive IUP at 10 weeks. Due to the fact the patient is unable to tolerate p.o. intake and the patient is so dehydrated, the patient will be admitted to her CRUTCHER HELPER service. Patient's CRUTCHER HELPER accepted the patient to be admitted to her service. - Differential Diagnosis Hyperemesis, nausea, vomiting, miscarriage, dehydration Critical Care Time: Yes Critical care time in (mins) excluding proc time.: 35 Critical care attestation.: If time is entered above; I have spent that time in minutes in the direct care of this critically ill patient, excluding procedure time. Critical Care Time: 35 minutes ED Disposition Clinical Impression: Hyperemesis gravidarum, Vaginal spotting Abdominal pain Qualifiers: Abdominal location: lower abdomen, unspecified Qualified Code(s): R10.30 - Lower abdominal pain, unspecified Qualifiers: Weeks of gestation: 10 weeks Qualified Code(s): Z3A.10 - 10 weeks gestation of Disposition: -09 OP ADMIT IP TO THIS HOSP Is pt being admited?: Yes Does the pt Need Aspirin: No Condition: Critical Time of Disposition: 21:58
[2020-03-05] MEDS ORDERED: HYDROmorphone 1 MG/1 ML INJ IV ONE (20:59)
[2020-03-05] MEDS ORDERED: PROMETHAZINE 25 MG RECT SUPP PR PRN (22:07)
[2020-03-05] MEDS ORDERED: BICITRA ORAL LIQD 30ML PO ONE (22:08)
[2020-03-05] MEDS ORDERED: ONDANSETRON 4 MG/2 ML INJ IV PRN (22:11)
[2020-03-05 22:21] LABS: Bilirubin,Urine NEG (Negative); Blood,Urine NEG (Negative); Color,Urine Yellow (Yellow); Mucus,Urine 2+ /HPF
[2020-03-05] MEDS ORDERED: D5W/LACTATED RINGERS 1,000 ML IV SCH (23:00)
[2020-03-06] MEDS: D5W/0.45% NACL/KCL 10 MEQ 10 MEQ/1,000 ML BAG IV SCH ×2 (06:33)
[2020-03-06 09:23] VITALS: BP 95/57
[2020-03-06] MEDS ORDERED: methylPREDNISolone 4 MG TAB PO SCH (10:00)
--- NOTE | 2020-03-06 11:22 | Progress Note ---
Subjective - Subjective Date of service: 03/06/20 Interval history: admitted for observation Hyperemesis gravidarum tolerating PO sips plan for d/c to home with steroids and antiemetic Rosey Castellanos MD Objective - Vital Signs Vital Signs: Vital Signs - 12hr 03/06/20 03/06/20 05:22 08:10 Temperature 98.2 F 98.2 F Pulse Rate 61 70 Respiratory 20 18 Rate Blood Pressure 102/66 Blood Pressure 95/57 [Left] O2 Sat by Pulse 96 99 Oximetry - Labs Labs: Abnormal Labs 03/05/20 03/05/20 03/05/20 17:36 17:36 17:36 MCHC 35 H Seg Neutrophils % 70.5 H Sodium 134 L Potassium 3.0 L Creatinine 0.5 L Glucose 117 H Lipase 12 L HCG, Quant [id number] H Laboratory Results - last 24 hr 03/05/20 03/05/20 03/05/20 17:36 17:36 17:36 WBC 8.9 RBC 4.19 Hgb 12.2 Hct 35.4 MCV 85 MCH 29 MCHC 35 H RDW 13.2 Plt Count 243 Lymph % (Auto) 23.2 [place] % (Auto) 5.7 Eos % (Auto) 0.2 Baso % (Auto) 0.4 Lymph # (Auto) 2.1 [place] # (Auto) 0.5 Eos # (Auto) 0.0 Baso # (Auto) 0.0 Seg Neutrophils % 70.5 H Seg Neutrophils # 6.3 Sodium 134 L Potassium 3.0 L Chloride 98.1 Carbon Dioxide 23 Anion Gap 16 BUN 8 Creatinine 0.5 L Estimated GFR > 60 BUN/Creatinine Ratio 16 Glucose 117 H Calcium 9.3 Total Bilirubin 0.30 AST 14 ALT 10 Alkaline Phosphatase 55 Total Protein 7.2 Albumin 4.1 Albumin/Globulin Ratio 1.3 Lipase 12 L HCG, Quant [id number] H Urine Color Urine Turbidity Urine pH Ur Specific [place] Urine Protein Urine Glucose (UA) Urine Ketones Urine Blood Urine Nitrite Urine Bilirubin Urine Urobilinogen Ur Leukocyte Esterase Urine WBC (Auto) Urine RBC (Auto) U Epithel Cells (Auto) Urine Mucus Blood Type 03/05/20 03/05/20 17:36 22:00 WBC RBC Hgb Hct MCV MCH MCHC RDW Plt Count Lymph % (Auto) [place] % (Auto) Eos % (Auto) Baso % (Auto) Lymph # (Auto) [place] # (Auto) Eos # (Auto) Baso # (Auto) Seg Neutrophils % Seg Neutrophils # Sodium Potassium Chloride Carbon Dioxide Anion Gap BUN Creatinine Estimated GFR BUN/Creatinine Ratio Glucose Calcium Total Bilirubin AST ALT Alkaline Phosphatase Total Protein Albumin Albumin/Globulin Ratio Lipase HCG, Quant Urine Color Yellow Urine Turbidity Clear Urine pH 6.0 Ur Specific [place] 1.028 Urine Protein 30 mg/dl Urine Glucose (UA) Neg Urine Ketones 80 Urine Blood Neg Urine Nitrite Neg Urine Bilirubin Neg Urine Urobilinogen 2.0 Ur Leukocyte Esterase Neg Urine WBC (Auto) 2.0 Urine RBC (Auto) 2.0 U Epithel Cells (Auto) 1.0 Urine Mucus 2+ Blood Type O POSITIVE
== END 2020-03-06 13:45 | disposition home or self-care (01) | DRG 833 ==
LOC: ED 17:18 → OB 22:45
PROVIDERS: ADMIT Obstetrics & Gynecology; ATTEND Obstetrics & Gynecology
DX: O21.0 Mild hyperemesis gravidarum (principal); O26.851 Spotting complicating pregnancy, first trimester; Z3A.12 12 weeks gestation of pregnancy; Z20.822 Contact with and (suspected) exposure to COVID-19
CPT/HCPCS: 36415; 76801; 76817; 80053; 81001; 83690; 84702; 85025; 86900; 86901; G0378; J1170; J1200; J2405; J2765; J7030; J7120; U0003

== ENCOUNTER 2020-03-26 23:47 | Emergency (ER) | payer MEDICAID ==
[2020-03-26] MEDS ORDERED: FAMOTIDINE 20 MG/2 ML INJ IV ONE (23:59)
[2020-03-26] MEDS ORDERED: METOCLOPRAMIDE 10 MG/2 ML INJ IV ONE (23:59)
[2020-03-26] MEDS ORDERED: diphenhydrAMINE 50 MG/ML VIAL IV ONE (23:59)
[2020-03-27] MEDS ORDERED: SODIUM CHLORIDE 0.9% 1000 ML 1,000 ML IV ONE
[2020-03-27 00:29] LABS: Basophils % (Auto) 0.2 % (0.0-1.8); Eosinophils % (Auto) 0.4 % (0.0-4.3); Hematocrit 32.9 % (30.3-42.9); Hemoglobin 11.8 gm/dl (10.1-14.3); Lymphocytes # (Auto) 1.4 K/mm3 (1.2-5.4); Lymphocytes % (Auto) 19.3 % (13.4-35.0); Mean Corpuscular HGB Conc 36 % (30-34); Mean Corpuscular Volume 84 fl (79-97); Monocytes # (Auto) 0.4 K/mm3 (0.0-0.8); Platelet Count 225 K/mm3 (140-440); Red Blood Count 3.93 M/mm3 (3.65-5.03); Red Cell Distribution Width 13.3 % (13.2-15.2)
--- NOTE | 2020-03-27 00:40 | Emergency Department Report ---
ED N/V/D HPI - General Chief complaint: Nausea/Vomiting/Diarrhea Stated complaint: DIZZY Source: patient Mode of arrival: Ambulatory Limitations: No Limitations - History of Present Illness Initial comments: Patient is a A0 24-year-old -[place] female who is approximately 13 weeks gestation and with no past medical history presents to the ED with complaint of acute onset persistent intermittent intractable nausea and vomiting and mild epigastric pain for the last 3 days. Patient states that her symptoms began about 1 week ago but got worse in the last 3 days such that she has not been able to keep anything down including fluids and solid foods. Patient state s that any smell of food makes the nausea and vomiting worse. Patient also complains of lightheadedness, generalized weakness and fatigue and states that the last time she ate any food and kept was 3 days ago. Patient denies fever, chills, cough, chest pain, shortness of breath, sore throat, nasal and sinus congestion, headache, dysuria, urinary frequency and urgency, vaginal bleeding, vaginal discharge, low back pain, change in vision, syncope or headache. MD complaint: nausea, vomiting, abdominal pain (Epigastric pain), other (Lightheadedness and generalized weakness) -: Sudden, days(s) (3) Description of Vomiting: food contents, watery Associated Abdominal Pain: Yes (epigastric pain) Location: epigastric Radiation: none Severity: severe Pain Scale: 7 Quality: cramping, aching Consistency: intermittent Improves with: none Worsens with: eating, vomiting Context: other (13 weeks gestation) Associated Symptoms: denies other symptoms, loss of appetite, malaise, nausea/vomiting, weakness, other (lightheadedness). denies: myalgias, chest pain, cough, diaphoresis, fever/chills, headaches, rash, dysuria, shortness of breath, syncope - Related Data Previous Rx's Medication Instructions Recorded Last Taken Type Ondansetron [Zofran Odt] 4 mg PO Q8HR PRN #12 tab.rapdis 04/11/19 Unknown Rx Sulfamethoxazole/Trimethoprim 1 each PO BID 5 Days #10 tablet 04/11/19 Unknown Rx [Bactrim DS TAB] Meclizine [Antivert] 12.5 mg PO BID PRN #6 tablet 06/03/19 Unknown Rx Phenazopyridine [Pyridium] 200 mg PO TID #6 tab 07/26/19 Unknown Rx Sulfamethoxazole/Trimethoprim 1 each PO BID #6 tablet 07/26/19 Unknown Rx [Bactrim DS TAB] Acetaminophen [Tylenol] 650 mg PO Q8HR PRN #20 capsule 01/19/20 03/05/20 10:00 Rx Docusate Sodium [Colace] 100 mg PO BID PRN #20 capsule 01/19/20 Unknown Rx Ondansetron [Zofran Odt] 4 mg PO Q8HR PRN #7 tab.rapdis 01/19/20 Unknown Rx Ondansetron HCl [Zofran] 4 mg PO Q6HR #20 tablet 03/06/20 Unknown Rx methylPREDNISolone [Medrol 4MG 4 mg PO TITRATE #1 tab.ds.pk 03/06/20 Unknown Rx DOSEPAK (21 tabs)] Acetaminophen [Tylenol] 500 mg PO Q6HR PRN #30 tablet 03/27/20 Unknown Rx Famotidine [Pepcid] 20 mg PO BID #30 tablet 03/27/20 Unknown Rx Metoclopramide [Reglan] 10 mg PO Q8H PRN #30 tab 03/27/20 Unknown Rx Promethazine [Phenergan] 25 mg PA Q6HR PRN #20 supp.rect 03/27/20 Unknown Rx cephALEXin [Keflex] 500 mg PO Q8HR #30 cap 03/27/20 Unknown Rx Allergies Allergy/AdvReac Type Severity Reaction Status Date / Time No Known Allergies Allergy Unverified 04/11/19 16:16 ED Review of Systems ROS: Stated complaint: DIZZY Other details as noted in HPI Constitutional: denies: chills, fever Eyes: denies: eye pain, eye discharge, vision change ENT: denies: ear pain, throat pain Respiratory: denies: cough, shortness of breath, wheezing Cardiovascular: denies: chest pain, palpitations Endocrine: no symptoms reported Gastrointestinal: abdominal pain, nausea, vomiting. denies: diarrhea Genitourinary: denies: urgency, dysuria, discharge Musculoskeletal: denies: back pain, joint swelling, arthralgia Skin: denies: rash, lesions Neurological: weakness, other (generalized weakness). denies: headache, paresthesias Psychiatric: denies: anxiety, depression Hematological/Lymphatic: denies: easy bleeding, easy bruising ED Past Medical Hx - Past Medical History Previous Medical History?: No - Surgical History Past Surgical History?: No - Social History Smoking Status: Never Smoker Substance Use Type: None - Medications Home Medications: Home Medications Medication Instructions Recorded Confirmed Last Taken Type Ondansetron [Zofran Odt] 4 mg PO Q8HR PRN #12 tab.rapdis 04/11/19 03/06/20 Unknown Rx Sulfamethoxazole/Trimethoprim 1 each PO BID 5 Days #10 tablet 04/11/19 03/06/20 Unknown Rx [Bactrim DS TAB] Meclizine [Antivert] 12.5 mg PO BID PRN #6 tablet 06/03/19 03/06/20 Unknown Rx Phenazopyridine [Pyridium] 200 mg PO TID #6 tab 07/26/19 03/06/20 Unknown Rx Sulfamethoxazole/Trimethoprim 1 each PO BID #6 tablet 07/26/19 03/06/20 Unknown Rx [Bactrim DS TAB] Acetaminophen [Tylenol] 650 mg PO Q8HR PRN #20 capsule 01/19/20 03/06/20 03/05/20 10:00 Rx Docusate Sodium [Colace] 100 mg PO BID PRN #20 capsule 01/19/20 03/06/20 Unknown Rx Ondansetron [Zofran Odt] 4 mg PO Q8HR PRN #7 tab.rapdis 01/19/20 03/06/20 Unknown Rx Ondansetron HCl [Zofran] 4 mg PO Q6HR #20 tablet 03/06/20 Unknown Rx methylPREDNISolone [Medrol 4MG 4 mg PO TITRATE #1 tab.ds.pk 03/06/20 Unknown Rx DOSEPAK (21 tabs)] Acetaminophen [Tylenol] 500 mg PO Q6HR PRN #30 tablet 03/27/20 Unknown Rx Famotidine [Pepcid] 20 mg PO BID #30 tablet 03/27/20 Unknown Rx Metoclopramide [Reglan] 10 mg PO Q8H PRN #30 tab 03/27/20 Unknown Rx Promethazine [Phenergan] 25 mg PA Q6HR PRN #20 supp.rect 03/27/20 Unknown Rx cephALEXin [Keflex] 500 mg PO Q8HR #30 cap 03/27/20 Unknown Rx ED Physical Exam - General Limitations: No Limitations General appearance: alert, in no apparent distress - Head Head exam: Present: atraumatic, normocephalic, normal inspection - Eye Eye exam: Present: normal appearance, PERRL, EOMI Pupils: Present: normal accommodation - ENT ENT exam: Present: normal exam, normal orophraynx, mucous membranes moist, TM's normal bilaterally, normal external ear exam - Neck Neck exam: Present: normal inspection, full ROM - Respiratory Respiratory exam: Present: normal lung sounds bilaterally. Absent: respiratory distress, wheezes, rales, rhonchi, chest wall tenderness, accessory muscle use, prolonged expiratory - Cardiovascular Cardiovascular Exam: Present: normal rhythm, tachycardia, normal heart sounds. Absent: systolic murmur, diastolic murmur, rubs, gallop - GI/Abdominal GI/Abdominal exam: Present: soft, tenderness (Palpable mild epigastric tenderness), normal bowel sounds. Absent: guarding, rebound, hyperactive bowel sounds, hypoactive bowel sounds, organomegaly - Extremities Exam Extremities exam: Present: normal inspection, full ROM, normal capillary refill - Back Exam Back exam: Present: normal inspection, full ROM. Absent: tenderness, CVA tenderness (R), CVA tenderness (L), muscle spasm, paraspinal tenderness, vertebral tenderness - Neurological Exam Neurological exam: Present: alert, oriented X3, CN II-XII intact, normal gait, reflexes normal - Psychiatric Psychiatric exam: Present: normal affect, normal mood - Skin Skin exam: Present: warm, dry, intact, normal color. Absent: rash ED Course Vital Signs 03/26/20 03/27/20 23:50 04:16 Temperature 97.9 F Pulse Rate 124 H 71 Respiratory 22 15 Rate Blood Pressure 116/65 Blood Pressure 95/61 [Right] O2 Sat by Pulse 99 98 Oximetry ED Medical Decision Making - Lab Data Result diagrams: 03/27/20 00:11 03/27/20 00:11 - Radiology Data Radiology results: report reviewed, image reviewed Findings [facility] [address] [place] [address] Ultrasound Report Signed Patient: MAHNAZ FARRELL MR#: [id number] : 1995 Acct:[id number] Age/Sex: 24 / F ADM Date: 03/26/20 Loc: ED Attending Dr: Ordering Physician: RIAN TRAORE Date of Service: 03/27/20 Procedure(s): US OB transvaginal Accession Number(s): [id number] cc: RIAN TRAORE TRANSABDOMINAL AND TRANSVAGINAL OB PELVIC ULTRASOUND INDICATION / CLINICAL INFORMATION: Pelvic pain. COMPARISON: 03/05/20. FINDINGS: TRANSABDOMINAL: The uterus measures 13.9 x 9.3 x 10.0 cm. There is a single intrauterine with an estimated gestational age of 13 weeks 5 days by crown-rump length. The heart rate is 160 bpm. Neither ovary is seen. TRANSVAGINAL: There is no evidence of implantation hemorrhage. The developing placenta is located anteriorly without previa. IMPRESSION: Single viable 13 week 5 day intrauterine without complication. Signer Name: Danish Casillas MD Signed: 03/27/2020 3:14 AM Workstation Name: [id number] Transcribed By: RT Dictated By: Danish Casillas MD Electronically Authenticated By: Danish Casillas MD Signed Date/Time: 03/27/20313 DD/ 9 TD/TT: Findings [facility] [address] [place] [address] Ultrasound Report Signed Patient: MAHNAZ FARRELL MR#: [id number] : 1995 Acct:[id number] Age/Sex: 24 / F ADM Date: 03/26/20 Loc: ED Attending Dr: Ordering Physician: RIAN TRAORE Date of Service: 03/27/20 Procedure(s): US OB <= 14 weeks fetus Accession Number(s): [id number] cc: RIAN TRAORE TRANSABDOMINAL AND TRANSVAGINAL OB PELVIC ULTRASOUND INDICATION / CLINICAL INFORMATION: Pelvic pain. COMPARISON: 03/05/20. FINDINGS: TRANSABDOMINAL: The uterus measures 13.9 x 9.3 x 10.0 cm. There is a single intrauterine with an estimated gestational age of 13 weeks 5 days by crown-rump length. The heart rate is 160 bpm. Neither ovary is seen. TRANSVAGINAL: There is no evidence of implantation hemorrhage. The developing placenta is located anteriorly without previa. IMPRESSION: Single viable 13 week 5 day intrauterine without complication. Signer Name: Danish Casillas MD Signed: 03/27/2020 3:14 AM Workstation Name: [id number] Transcribed By: RT Dictated By: Danish Casillas MD Electronically Authenticated By: Danish Casillas MD Signed Date/Time: 03/27/20313 DD/ 9 TD/TT: - Medical Decision Making This is a A0 24-year-old -[place] female who is approximately 13 weeks gestation and with no past medical history presents to the ED with complaint of acute onset persistent intermittent intractable nausea and vomiting and mild epigastric pain for the last 3 days. Patient states that her symptoms began about 1 week ago but got worse in the last 3 days such that she has not been able to keep anything down including fluids and solid foods. Patient states that any smell of food makes the nausea and vomiting worse. Patient also complains of lightheadedness, generalized weakness and fatigue and states that the last time she ate any food and kept was 3 days ago. In the ED, patient is alert and oriented x3 and is not in any distress but tachycardic, anxious and appears to be in no distress. Lab test results [place] [id number], mild hyponatremia 133 mmol/L and significant urinary tract infection in urinalysis. Transvaginal ultrasound showed a single viable 13 week 5 day intrauterine without complication. Patient was treated for nausea and vomiting, also given antiemetics and normal saline 1 L IV bolus x1 with antacids. Patient also received Rocephin 1 g IV at x1 for UTI. On reevaluation, patient's pain, nausea and vomiting well controlled medications. Patient passed oral fluid challenge in the ED. Patient was therefore discharged home on medications for nausea and vomiting and advised to follow-up with her OB NURSE physician in 24 to 48 hours for reevaluation. On reevaluation, patient nausea and vomiting resolved and tachycardia also resolved. Patient is therefore hemodynamically stable prior to being discharged from the ED. Patient was advised to maintain a complete pelvic rest as well as clear liquid diet for 12 to 24 hours while taking medications. Patient was advised to return to the ED immediately if symptoms get worse. - Differential Diagnosis Hyperemesis gravidarum; dehydration; GERD; UTI; gastroenteritis Critical care attestation.: If time is entered above; I have spent that time in minutes in the direct care of this critically ill patient, excluding procedure time. ED Disposition Clinical Impression: Hyperemesis gravidarum, Nausea and vomiting in , Acute urinary tract infection GERD (gastroesophageal reflux disease) Qualifiers: Esophagitis presence: without esophagitis Qualified Code(s): K21.9 - Gastro- esophageal reflux disease without esophagitis Disposition: TO HOME OR SELFCARE Is pt being admited?: No Does the pt Need Aspirin: No Condition: Stable Instructions: Nausea and Vomiting, Adult, [id number], Urinary Tract Infection, Adult, [id number], Gastroesophageal Reflux Disease, Adult, [id number] Additional Instructions: Maintain a clear liquid diet for 12-24 hours, drink plenty of fluids and take medications with food. Follow up with your Primary care physician or [facility] Service Representative in 2-3 days for reevaluation. Return to the ED immediately if symptoms get worse. Prescriptions: Acetaminophen [Tylenol] 500 mg PO Q6HR PRN #30 tablet PRN Reason: Nausea cephALEXin [Keflex] 500 mg PO Q8HR #30 cap Famotidine [Pepcid] 20 mg PO BID #30 tablet Promethazine [Phenergan] 25 mg PA Q6HR PRN #20 supp.rect PRN Reason: Nausea Metoclopramide [Reglan] 10 mg PO Q8H PRN #30 tab PRN Reason: Nausea Referrals: [facility] [Provider Group] - 3-5 Days LINDSEY COLE JR, MD [Staff Physician] - 3-5 Days Time of Disposition: 03:43 Print Language: CROATIAN
[2020-03-27 00:42] LABS: Alanine Aminotransferase 5 units/L (7-56); Blood Urea Nitrogen 5 mg/dL (7-17); Calcium 8.9 mg/dL (8.4-10.2); Hemolysis Index 0
[2020-03-27 00:52] LABS: Bacteria,Urine 2+ /HPF (Negative); Bilirubin,Urine NEG (Negative); Blood,Urine NEG (Negative); Color,Urine Amber (Yellow); Mucus,Urine 3+ /HPF
[2020-03-27 00:54] LABS: BUN/Creatinine Ratio 10
[2020-03-27 00:54] LABS: WBC,Urine > 182.0 /HPF (0.0-6.0)
[2020-03-27] MEDS ORDERED: cefTRIAXone/NS 1 GM/50 ML 1 GM/50 ML BAG IV ONE (01:06)
--- NOTE | 2020-03-27 03:18 | Ultrasound Report ---
TRANSABDOMINAL AND TRANSVAGINAL OB PELVIC ULTRASOUND INDICATION / CLINICAL INFORMATION: Pelvic pain. COMPARISON: 03/05/20. FINDINGS: TRANSABDOMINAL: The uterus measures 13.9 x 9.3 x 10.0 cm. There is a single intrauterine wi th an estimated gestational age of 13 weeks 5 days by crown-rump length. The heart rate is 160 bpm. Neither ovary is seen. TRANSVAGINAL: There is no evidence of implantation hemorrhage. The developing placenta is located ant eriorly without previa. IMPRESSION: Single viable 13 week 5 day intrauterine without complication. Signer Name: Danish Casillas MD Signed: 03/27/2020 3:14 AM Workstation Name: [id number]
[2020-03-27 05:14] VITALS: BP 106/59
== END 2020-03-27 05:09 | disposition home or self-care (01) ==
LOC: ED 23:47
DX: O21.0 Mild hyperemesis gravidarum (principal); O23.41 Unspecified infection of urinary tract in pregnancy, first trimester; O99.611 Diseases of the digestive system complicating pregnancy, first trimester; K21.9 Gastro-esophageal reflux disease without esophagitis; Z3A.13 13 weeks gestation of pregnancy; Z79.899 Other long term (current) drug therapy
CPT/HCPCS: 36415; 76801; 76817; 80053; 81001; 83690; 84702; 84703; 85025; 96365; 96366; 96375; 99284; J0696; J1200; J2765; J7030

== ENCOUNTER 2020-07-23 18:38 | Outpatient (CLI) | payer MEDICAID ==
[2020-07-23 19:19] VITALS: BP 109/61
[2020-07-23 19:50] LABS: Bilirubin,Urine NEG (Negative); Blood,Urine NEG (Negative); Color,Urine Yellow (Yellow); Mucus,Urine 3+ /HPF
[2020-07-23] MEDS ORDERED: LACTATED RINGERS 2,000 ML ONE (20:19)
[2020-07-23] MEDS ORDERED: LACTATED RINGERS 1000 ML IV SOLN IV SCH (20:30)
[2020-07-23] MEDS ORDERED: TERBUTALINE 1 MG/1 ML INJ IVP ONE (20:32)
[2020-07-23 20:49] LABS: Hematocrit 27.3 % (30.3-42.9); Hemoglobin 9.3 gm/dl (10.1-14.3); Mean Corpuscular HGB Conc 34 % (30-34); Mean Corpuscular Volume 83 fl (79-97); Platelet Count 191 K/mm3 (140-440)
[2020-07-23 21:12] LABS: Albumin 3.4 g/dL (3.9-5); Blood Urea Nitrogen 4 mg/dL (7-17); Calcium 8.5 mg/dL (8.4-10.2); Hemolysis Index 4
[2020-07-23 21:14] LABS: Alanine Aminotransferase < 5 units/L (7-56); BUN/Creatinine Ratio 13
[2020-07-23] MEDS ORDERED: ONDANSETRON 4 MG/2 ML INJ IV PRN (23:05)
--- NOTE | 2020-07-23 23:58 | Ultrasound Report ---
CLINICAL DATA: r/o labor TECHNICAL DATA: Document breath, motion, gestational age, tone, and fluid. FINDINGS: respiration, tone, and motion are well visualized and normal. Amniotic fluid volume is normal. Biophysical profile score is 8/8. The lower uterine segment is evaluated and there is no evidence of placenta previa. heart rate is Heart Rate.144 IMPRESSION: The biophysical profile score is 8/8. Signer Name: Dany Riggins MD Signed: 07/23/2020 11:53 PM Workstation Name: [id number]
--- NOTE | 2020-07-24 00:01 | Ultrasound Report ---
ULTRASOUND OBSTETRIC INDICATION / CLINICAL INFORMATION: r/o labor. Clinical Gestational Age (GA): TECHNIQUE: Transabdominal. COMPARISON: 03/27/2020. FINDINGS: There is a single intrauterine . Biparietal Diameter = 7.4 cm = 29 weeks, 4 day(s). Head Circumference = 26.5 cm = 28 weeks, 6 day(s). Abdominal Circumference = 23.4 cm = 27 weeks, 5 day(s). Femur Length = 5.7 cm = 30 weeks, 0 day(s). Average Ultrasound Age (AUA) = 29 weeks, 0 day(s). Heart Rate: 144 beats per minute. Estimated Weight in grams (if calculated): Estimated Weight Growth Percentile (if calculated): Position: cephalic. Cervix: closed. Length in cm (if measured): 3.0 Placenta: Anterior to the right and free of the os. Amniotic Fluid Volume: normal Amniotic Fluid Index (MITCH) in cm (if calculated): 10. Maternal Adnexa: No significant abnormality. IMPRESSION: 1. Single, living intrauterine with estimated sonographic age of 29 weeks, 0 day(s). 2. No significant sonographic abnormality. Signer Name: Dany Riggins MD Signed: 07/23/2020 11:56 PM Workstation Name: [id number]
== END 2020-07-24 00:09 | disposition home or self-care (01) ==
LOC: TRG 18:38 → APU 18:40 → TRG 07-24 00:09
PROVIDERS: ATTEND Obstetrics & Gynecology
DX: O21.2 Late vomiting of pregnancy (principal); O26.893 Other specified pregnancy related conditions, third trimester; R19.7 Diarrhea, unspecified; O47.03 False labor before 37 completed weeks of gestation, third trimester; Z3A.30 30 weeks gestation of pregnancy
CPT/HCPCS: 36415; 59025; 76816; 76819; 80053; 81001; 82731; 85027; 96365; J2405; J7120; 96360; 96361; 96372

== ENCOUNTER 2020-08-28 01:52 | Outpatient (CLI) | payer MEDICAID ==
[2020-08-28] MEDS ORDERED: LACTATED RINGERS 500 ML IV ONE (02:02)
[2020-08-28 02:13] VITALS: BP 113/70
[2020-08-28] MEDS ORDERED: LACTATED RINGERS 1000 ML IV SOLN IV SCH (02:15)
[2020-08-28] MEDS ORDERED: METOCLOPRAMIDE 10 MG/2 ML INJ IV ONE (02:28)
[2020-08-28] MEDS ORDERED: ONDANSETRON 4 MG/2 ML INJ IV ONE (02:28)
[2020-08-28] MEDS ORDERED: LOPERAMIDE 2 MG CAP PO ONE (02:28)
== END 2020-08-28 03:35 | disposition home or self-care (01) ==
LOC: TRG 01:52 → APU 01:52 → TRG 03:35
PROVIDERS: ATTEND Obstetrics & Gynecology
DX: O21.2 Late vomiting of pregnancy (principal); O26.893 Other specified pregnancy related conditions, third trimester; R19.7 Diarrhea, unspecified; O47.03 False labor before 37 completed weeks of gestation, third trimester; Z3A.35 35 weeks gestation of pregnancy
CPT/HCPCS: 59025; 96361; 96374; 96375; J2405; J2765; J7120; 96360

== ENCOUNTER 2020-09-06 01:52 | Inpatient (IN) | payer MEDICAID ==
[2020-09-06] MEDS ORDERED: LACTATED RINGERS 1,000 ML ONE (02:32)
[2020-09-06] MEDS ORDERED: TERBUTALINE 1 MG/1 ML INJ SUB-Q PRN (02:46)
[2020-09-06] MEDS ORDERED: fentaNYL 100 MCG/2 ML INJ IV PRN (02:46)
[2020-09-06] MEDS ORDERED: MINERAL OIL 30 ML ORAL LIQD PO PRN (02:46)
[2020-09-06] MEDS ORDERED: ePHEDrine SULFATE 50 MG/1 ML INJ IV PRN ×2 (02:46→04:26)
[2020-09-06] MEDS ORDERED: AMPICILLIN/NS 2 GM/100 ML 2 GM/100 ML BAG IV ONE (02:46)
[2020-09-06] MEDS ORDERED: LOPERAMIDE 2 MG CAP PO PRN (02:46)
[2020-09-06] MEDS ORDERED: OXYTOCIN 10 UNIT/1 ML INJ IM PRN (02:46)
[2020-09-06] MEDS ORDERED: miSOPROStol 200 MCG TAB PR PRN (02:46)
[2020-09-06] MEDS ORDERED: CARBOPROST TROMETHAMINE 250 MCG/1 ML INJ IM PRN (02:46)
[2020-09-06] MEDS ORDERED: LIDOCAINE (2%) 20 MG/1 ML VIAL 20 ML MDV INFILTRATI ONE (02:46)
[2020-09-06] MEDS ORDERED: METHYLERGONOVINE MALEATE 0.2 MG/ML VIAL IM PRN (02:46)
[2020-09-06] MEDS ORDERED: OXYTOCIN DRIP 30 UNITS/500 ML BAG IV SCH (03:00)
[2020-09-06 03:17] LABS: Hematocrit 29.8 % (30.3-42.9); Mean Corpuscular HGB Conc 34 % (30-34); Mean Corpuscular Volume 80 fl (79-97); Platelet Count 229 K/mm3 (140-440); Red Blood Count 3.74 M/mm3 (3.65-5.03); Red Cell Distribution Width 14.5 % (13.2-15.2)
[2020-09-06] MEDS: LACTATED RINGERS 1,000 ML IV SCH ×2 (03:20→04:31)
--- NOTE | 2020-09-06 03:20 | History and Physical Report ---
History of Present Illness Date of examination: 09/06/20 Date of admission: 09/06/20 Chief complaint: Contractions History of present illness: 25 year old presents complaining of contractions since 8:00 PM last night. Patient denies leaking of fluid or vaginal bleeding. Patient reports active movement. Patient states she receives care at [facility]. No records are available. Patient states her EDC is 09/30/2020. Ultrasound done here in June 2020 shows EDC of 10/08/2020. Patient denies any complications with this . Reports 4 previous vaginal births (2 term and 2 ) and 1 miscarriage. labs drawn upon admission. Currently taking iron supplements at home and no other regular medications. NKDA. Past History Past Medical History: no pertinent history Past Surgical History: appendectomy [facility] History: denies: chlamydia, gonorrhea, hepatitis B, hepatitis C, herpes, HIV, syphilis, trichomonas Family/Genetic History: none Social history: no significant social history, full code. denies: smoking, alcohol abuse, prescription drug abuse, IV drug use - Obstetrical History Expected Date of Delivery: 09/30/20 Actual Gestation: 36 Week(s) 4 Day(s) : 6 Para: 4 Hx # Term Pregnancies: 2 Number of Pregnancies: 2 Spontaneous Abortions: 1 Induced : 0 Number of Living Children: 4 Medications and Allergies Allergies Allergy/AdvReac Type Severity Reaction Status Date / Time No Known Allergies Allergy Verified 07/23/20 19:23 Home Medications Medication Instructions Recorded Confirmed Last Taken Type Ondansetron [Zofran Odt] 4 mg PO Q8HR PRN #12 tab.rapdis 04/11/19 03/06/20 Unknown Rx Sulfamethoxazole/Trimethoprim 1 each PO BID 5 Days #10 tablet 04/11/19 03/06/20 Unknown Rx [Bactrim DS TAB] Meclizine [Antivert] 12.5 mg PO BID PRN #6 tablet 06/03/19 03/06/20 Unknown Rx Phenazopyridine [Pyridium] 200 mg PO TID #6 tab 07/26/19 03/06/20 Unknown Rx Sulfamethoxazole/Trimethoprim 1 each PO BID #6 tablet 07/26/19 03/06/20 Unknown Rx [Bactrim DS TAB] Acetaminophen [Tylenol] 650 mg PO Q8HR PRN #20 capsule 11/23/20 01/09/21 01/08/21 10:00 Rx Docusate Sodium [Colace] 100 mg PO BID PRN #20 capsule 01/19/20 03/06/20 Unknown Rx Ondansetron [Zofran Odt] 4 mg PO Q8HR PRN #7 tab.rapdis 01/19/20 03/06/20 Unknown Rx Ondansetron HCl [Zofran] 4 mg PO Q6HR #20 tablet 03/06/20 Unknown Rx methylPREDNISolone [Medrol 4MG 4 mg PO TITRATE #1 tab.ds.pk 03/06/20 Unknown Rx DOSEPAK (21 tabs)] Acetaminophen [Tylenol] 500 mg PO Q6HR PRN #30 tablet 03/27/20 Unknown Rx Famotidine [Pepcid] 20 mg PO BID #30 tablet 03/27/20 Unknown Rx Metoclopramide [Reglan] 10 mg PO Q8H PRN #30 tab 03/27/20 Unknown Rx Promethazine [Phenergan] 25 mg VA Q6HR PRN #20 supp.rect 03/27/20 Unknown Rx cephALEXin [Keflex] 500 mg PO Q8HR #30 cap 03/27/20 Unknown Rx Active Meds: Active Medications Betamethasone Acet/Betameth SodPhos (Betamet Acet/Betamet Na Ph 6 Mg/Ml Inj 5 Ml Mdv) 12 mg IM ONCE ONE Stop: 09/06/20 03:32 Carboprost Tromethamine (Carboprost Tromethamine 250 Mcg/1 Ml Inj) 250 mcg IM ONCE PRN PRN Reason: Uterine Bleeding Ephedrine Sulfate (Ephedrine Sulfate 50 Mg/1 Ml Inj) 10 mg IV Q2M PRN PRN Reason: Hypotension Fentanyl (Fentanyl 100 Mcg/2 Ml Inj) 100 mcg IV Q2H PRN PRN Reason: Pain,Severe (7-10) LABOR PAIN Lactated Ringer's (Lactated Ringers) 1,000 mls @ 125 mls/hr IV DIRECT FAN Last Admin: 09/06/20 03:20 Dose: 125 mls/hr Documented by: Oxytocin/Sodium Chloride (Pitocin/Ns 30 Unit/500ml) 30 units in 500 mls @ 40 mls/hr IV TITR FAN; Protocol Ampicillin Sodium (Ampicillin/Ns 2 Gm/100 Ml) 2 gm in 100 mls @ 100 mls/hr IV ONCE ONE; Protocol Stop: 09/06/20 03:45 Last Admin: 09/06/20 03:19 Dose: 100 mls/hr Documented by: Ampicillin Sodium (Ampicillin/Ns 1 Gm/50 Ml) 1 gm in 50 mls @ 100 mls/hr IV Q4H FAN; Protocol Loperamide HCl (Loperamide 2 Mg Cap) 2 mg PO ONCE PRN PRN Reason: give with Hemabate Methylergonovine Maleate (Methylergonovine Maleate 0.2 Mg/Ml Vial) 0.2 mg IM ONCE PRN PRN Reason: Uterine Bleeding Mineral Oil (Mineral Oil 30 Ml Oral Liqd) 30 ml PO QHS PRN PRN Reason: Constipation Misoprostol (Misoprostol 200 Mcg Tab) 800 mcg VA ONCE PRN PRN Reason: Uterine Bleeding Oxytocin (Oxytocin 10 Unit/1 Ml Inj) 10 unit IM ONCE PRN PRN Reason: Uterine Bleeding Terbutaline Sulfate (Terbutaline 1 Mg/1 Ml Inj) 0.25 mg SUB-Q ONCE PRN PRN Reason: Hyperstimulation/Hypertonicity Review of Systems All systems: negative (contractions) - Vital Signs Vital signs: Vital Signs Pulse BP 97 H 106/59 09/06/20 02:12 09/06/20 02:12 Temp Pulse Resp BP Pulse Ox 98.4 F 97 H 18 115/75 96 09/06/20 03:16 09/06/20 03:18 09/06/20 03:16 09/06/20 03:18 09/06/20 03:17 - Physical Exam Abdomen: Positive: normal appearance, soft. Negative: distention, tenderness, guarding, rigidity Genitourinary (Female): Positive: normal external genitalia, normal perenium. Negative: perineal/vulvar lesions Vagina: Positive: normal moisture Uterus: Positive: enlarged. Negative: tender Anus/Rectum: Positive: normal perianal skin Extremities: Positive: normal. Negative: tenderness, edema - Obstetrical FHR: category 1 Uterine Contraction Monitor Mode: External Cervical Dilatation: 3.5 (4 cm during contraction) Cervical Effacement Percentage: 50 (BBOW) station: -2 Uterine Contraction Pattern: Regular Uterine Contraction Intensity: Moderate Results Result Diagrams: 09/06/20 02:46 Abnormal lab results 09/06/20 Range/Units 02:46 Hgb 10.0 L (10.1-14.3) gm/dl Hct 29.8 L (30.3-42.9) % MCH 27 L (28-32) pg All other labs normal. Assessment and Plan A: at 36 weeks, 4 days gestation. Early labor. GBS unknown. No records available. P: Admit. Continuous EFM. Celestone IM. GBS prophylaxis. Draw labs. Request records as soon as office opens at 9:00 AM.
[2020-09-06] MEDS ORDERED: BETAMET ACET/BETAMET NA PH 6 MG/ML INJ 5 ML MDV IM ONE (03:31)
[2020-09-06 03:43] LABS: Hepatitis C Virus Antibody Non-Reactive (NonReactive)
--- NOTE | 2020-09-06 04:09 | Event Note ---
Date: 09/06/20 Patient requests epidural. SVE 4.5/60/-2.
[2020-09-06] MEDS ORDERED: NALOXONE 2 MG/2 ML INJ IV PRN (04:26)
--- NOTE | 2020-09-06 04:26 | Anesthesia Consultation ---
Anesthesia Consult and Med Hx Date of service: 09/06/20 - Airway Anesthetic Teeth Evaluation: Good ROM Head & Neck: Adequate Mental/Hyoid Distance: Adequate Mallampati Class: Class II Intubation Access Assessment: Probably Good - Pulmonary Exam CTA: Yes - Cardiac Exam Cardiac Exam: RRR - Pre-Operative Health Status ASA Pre-Surgery Classification: ASA2 Proposed Anesthetic Plan: Epidural - Pulmonary Hx Asthma: No COPD: No Hx Pneumonia: No - Cardiovascular System Hx Hypertension: No - Central Nervous System Hx Seizures: No Hx Psychiatric Problems: No - Endocrine Hx Renal Disease: No Hx End Stage Renal Disease: No Hx Hypothyroidism: No Hx Hyperthyroidism: No - Hematic Hx Anemia: No Hx Sickle Cell Disease: No - Other Systems Hx Alcohol Use: No
--- NOTE | 2020-09-06 04:49 | Progress Note ---
Labor Epidural - Labor Epidural Start Time: 04:36 Stop Time: 04:41 Performed by:: MANUEL TAYLOR Procedure: Patient is requesting epidural for labor pain. H&P, and labs reviewed. Procedure explained, questions answered, consent obtained. Patient in sitting position with blood pressure cuff and pulse ox on and working. Timeout performed immediately before start of procedure. Sterile chlorahexadine 0.5% prep/drape. 3 mL 1% lidocaine skin wheal at L[3]-L[4]. 18-gauge VYRE Limitedtead epidural needle advanced to [id number] with saline at [7] cm. 27-gauge spinal needle advanced until clear, free-flowing CSF. Intrathecal dexmedetomidine [5] mcg administered and needle removed. Epidural catheter advanced to [12] cm, negative aspiration for blood and csf, negative test dose 3 ml 1.5% lidocaine with epinephrine. Sterile steri-strips and tegaderm applied, followed by tape reinforcement. Patient tolerated procedure well.
[2020-09-06] MEDS ORDERED: fentaNYL-BUPIV 2 MCG/ML-0.125% 200 MCG/100 ML BAG EPIDURAL SCH (05:00)
[2020-09-06] MEDS ORDERED: MAGNESIUM HYDROXIDE (MOM) ORAL LIQD UDC PO PRN (06:03)
[2020-09-06] MEDS ORDERED: WITCH HAZEL/ GLYCERIN PAD TP PRN (06:03)
--- NOTE | 2020-09-06 06:28 | Procedure Note ---
OB Delivery Note - Delivery Date of Delivery: 09/06/20 Surgeon: TRENTON GONZALEZ Estimated blood loss: 200cc - Vaginal Delivery presentation: vertex Delivery position: OP Intrapartum events: labor-<37 weeks Delivery induction: none Delivery monitor: external FHT, external uterine Route of delivery: Delivery placenta: spontaneous Delivery cord: 3 umbilical vessels Episiotomy: none Delivery laceration: none Anesthesia: epidural Delivery comments: Spontaneous vaginal delivery at 05:44 of liveborn female weighing 5 lb. 9 oz. over intact perineum with apgars of 8/9. Membranes were ruptured just prior to delivery, moderate amount of clear fluid. was atraumatic in direct OP position. Baby was placed skin to skin with mom immediately after delivery and was dried with towel and bulb suctioned. Spontaneous cry and respirations. Delayed cord clamping. 3 vessel cord double clamped and cut and baby taken to radiant warmer for evaluation. NICU was present for delivery due to late gestation. Cord blood obtained. Spontaneous delivery of intact placenta and membranes by miles mechanism. EBL 200 cc. Pitocin to IV fluids after delivery of placenta. Fundus firm and midline. No lacerations noted. Small perineal skid mary, not bleeding. Vaginal sweep negative. Sponge count correct. Mother and baby stable.
[2020-09-06] MEDS ORDERED: AMPICILLIN/NS 1 GM/50 ML 1 GM/50 ML BAG IV SCH (07:00)
[2020-09-06] MEDS: DOCUSATE SODIUM 100 MG CAP PO SCH ×2 (10:33→21:35)
[2020-09-06] MEDS: LANOLIN/ZINC/DIMETHICONE (LANSINOH) 7 GM TP PRN (10:33)
[2020-09-06] MEDS: FERROUS SULFATE 325 MG TAB PO SCH ×2 (11:39→21:35)
[2020-09-06] MEDS: IBUPROFEN 600 MG TAB PO SCH ×3 (11:39→20:36)
[2020-09-06 20:25] LABS: Hematocrit 28.2 % (30.3-42.9); Hemoglobin 9.4 gm/dl (10.1-14.3)
[2020-09-06] MEDS: HYDROcodone/ACETAMINOPHEN 5-325 MG TAB PO PRN (21:41)
[2020-09-07] MEDS: IBUPROFEN 600 MG TAB PO SCH ×3 (00:18→18:35)
[2020-09-07] MEDS: HYDROcodone/ACETAMINOPHEN 5-325 MG TAB PO PRN ×2 (08:22→21:58)
--- NOTE | 2020-09-07 08:59 | Discharge Summary ---
Providers - Providers Date of Admission: 09/06/20 06:03 Date of discharge: 09/07/20 Attending physician: BRE SWANSON Primary care physician: BRE SWANSON Hospitalization Reason for admission: active labor, IUP at term Delivery: Episiotomy: none Laceration: none Other procedures: none complications: none Discharge diagnosis: IUP at term delivered [place] baby: female Hospital course: Pt was admitted to [facility] in active labor. She had a w/o pp complications and was d/cd home in stable condition. See H&P, delivery summary, and pp notes. Condition at discharge: Stable Disposition: DC-01 TO HOME OR SELFCARE Plan - Discharge Medications Prescriptions: Ferrous Sulfate [Feosol 325 MG tab] 325 mg PO BID #120 tablet Ibuprofen [Ibu-200] 600 mg PO Q4HRT #30 tablet - Provider Discharge Summary Activity: routine, no sex for 6 weeks, no heavy lifting 4 weeks, no strenuous exercise Diet: routine Instructions: routine Additional instructions: [] Smoking cessation referral if applicable(refer to patient education folder for contact #) [] Refer to [facility]'s [facility] Booklet Call your doctor immediately for: * Fever > 100.5 * Heavy vaginal bleeding ( >1 pad per hour) * Severe persistent headache * Shortness of breath * Reddened, hot, painful area to leg or breast * Drainage or odor from incision. * Keep incision clean and dry at all times and follow doctor's instructions regarding bathing/showering - Follow up plan Follow up: BRE SWANSON MD [Primary Care Provider] - 6 Weeks
[2020-09-07] MEDS: FERROUS SULFATE 325 MG TAB PO SCH ×2 (10:27→21:58)
[2020-09-07] MEDS: DOCUSATE SODIUM 100 MG CAP PO SCH ×2 (10:27→21:58)
--- NOTE | 2020-09-07 20:03 | Post Anesthesia Evaluation ---
- Post Anesthesia Evaluation Patient Participated: Yes Airway Patent: Yes Stable Respiratory Function: Yes Nausea/Vomiting: No Temp > 96.8F: Yes Pain Manageable: Yes Adequeate Hydration: Yes Anesthesia Complications: No Block Receding Appropriately: Yes
[2020-09-08] MEDS: DOCUSATE SODIUM 100 MG CAP PO SCH (10:21)
[2020-09-08] MEDS: LANOLIN/ZINC/DIMETHICONE (LANSINOH) 7 GM TP PRN (10:21)
[2020-09-08] MEDS: FERROUS SULFATE 325 MG TAB PO SCH (10:21)
[2020-09-08] MEDS: IBUPROFEN 600 MG TAB PO SCH (13:44)
[2020-09-08 17:04] VITALS: BP 100/64
== END 2020-09-08 16:50 | disposition home or self-care (01) | DRG 775 ==
LOC: TRG 01:52 → APU 02:00 → TRG 02:52 → LD 02:54 → OBSVTOIN 06:03 → OB 09:08
PROVIDERS: ADMIT Obstetrics & Gynecology; ATTEND Obstetrics & Gynecology
PROC: 10E0XZZ Delivery of Products of Conception, External Approach (ICD-10-PCS; principal; 2020-09-06)
PROC: 3E0R3BZ Introduction of Anesthetic Agent into Spinal Canal, Percutaneous Approach (ICD-10-PCS; 2020-09-06)
PROC: 00HU33Z Insertion of Infusion Device into Spinal Canal, Percutaneous Approach (ICD-10-PCS; 2020-09-06)
DX: O60.14X0 Preterm labor third trimester with preterm delivery third trimester, not applicable or unspecified (principal); Z3A.36 36 weeks gestation of pregnancy; Z37.0 Single live birth; Z90.49 Acquired absence of other specified parts of digestive tract; Z20.822 Contact with and (suspected) exposure to COVID-19
CPT/HCPCS: 36415; 85014; 85018; 85027; 86592; 86706; 86762; 86803; 86850; 86900; 86901; 87806; 99211; G0378; A6250; G0463; J0290; J0702; J2590; J3010; J7120; U0003

== ENCOUNTER 2021-01-14 17:46 | Emergency (ER) | payer MEDICAID ==
[2021-01-14] MEDS ORDERED: HYDROcodone/ACETAMINOPHEN 5-325 MG TAB PO ONE (18:27)
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
--- NOTE | 2021-01-14 19:39 | XRay Report ---
LEFT HAND 3 VIEWS INDICATION / CLINICAL INFORMATION: left ring finger deformity COMPARISON: None available. FINDINGS: BONES and JOINT(S): There is an acute mildly displaced vertically oriented fracture through the dista l third of the middle phalanx of the ring finger. There is lateral bending of the ring finger at the DIP joint. No dislocation. No significant arthritis. SOFT TISSUES: Mild edema is seen along the ring finger. ADDITIONAL FINDINGS: None. IMPRESSION: 1. Acute left ring finger fracture and associated deformity as above. Signer Name: Timur Ellison MD Signed: 01/14/2021 7:35 PM Workstation Name: [id number]
[2021-01-14 20:04] VITALS: BP 97/59
== END 2021-01-14 20:03 | disposition home or self-care (01) ==
LOC: ED 17:46
DX: S62.625A Displaced fracture of middle phalanx of left ring finger, initial encounter for closed fracture (principal); S80.211A Abrasion, right knee, initial encounter; Y08.89XA Assault by other specified means, initial encounter; Y93.89 Activity, other specified; Y92.89 Other specified places as the place of occurrence of the external cause; Y99.8 Other external cause status; M25.561 Pain in right knee
CPT/HCPCS: 99283

== ENCOUNTER 2021-05-19 18:55 | Emergency (ER) | payer MEDICAID | END 2021-05-20 02:40 | disposition left against medical advice (07) | LOC: ED 18:55 | DX: R11.2 Nausea with vomiting, unspecified (principal); R10.9 Unspecified abdominal pain; Z53.21 Procedure and treatment not carried out due to patient leaving prior to being seen by health care provider ==

== ENCOUNTER 2021-09-03 18:56 | Emergency (ER) | payer OTHER, MEDICAID ==
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
[2021-09-03] MEDS ORDERED: ACETAMINOPHEN 500 MG TAB PO ONE (21:17)
[2021-09-03] MEDS ORDERED: IBUPROFEN 600 MG TAB PO ONE (21:17)
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
[2021-09-03 23:29] VITALS: BP 117/59
== END 2021-09-04 00:29 | disposition home or self-care (01) ==
LOC: ED 18:56
DX: S63.635A Sprain of interphalangeal joint of left ring finger, initial encounter (principal); S63.92XA Sprain of unspecified part of left wrist and hand, initial encounter; M62.830 Muscle spasm of back; V89.2XXA Person injured in unspecified motor-vehicle accident, traffic, initial encounter; Y93.89 Activity, other specified; Y92.89 Other specified places as the place of occurrence of the external cause; Y99.8 Other external cause status
CPT/HCPCS: 99283